=== PATIENT | female | born 1955 | race Caucasian/White ===

== ENCOUNTER → 2018-05-17 | Outpatient (CLI) | payer OTHER ==
[~2018-05-17] MED LIST: DIPH50 PO; HYDACE5 PO; HYDPAM50 PO; NAPR500 PO
[2018-05-17 13:31] LABS: BASOPHILS ABSOLUTE AUTO 0.02 K/mm3 (0.00-0.23); BASOPHILS PERCENT AUTO 1 % (0-2); EOSINOPHILS ABSOLUTE AUTO 0.06 K/mm3 (0.00-0.68); EOSINOPHILS PERCENT AUTO 2 % (0-6); Hematocrit 37.9 % (33.0-51.0); Hemoglobin 12.2 g/dL (11.5-16.0); IMMATURE GRAN ABSOLUTE AUTO 0.01 K/mm3 (0.00-0.10); IMMATURE GRAN PERCENT AUTO 0 % (0-1); LYMPHOCYTES ABSOLUTE AUTO 0.84 K/mm3 (0.84-5.20); LYMPHOCYTES PERCENT AUTO 23 % (21-46); MONOCYTES ABSOLUTE AUTO 0.28 K/mm3 (0.16-1.47); MONOCYTES PERCENT AUTO 8 % (4-13); Mean Corpuscular HGB 28.6 pg (26.0-34.0); Mean Corpuscular HGB Conc 32.2 g/dL (31.5-36.5); Mean Corpuscular Volume 89 fL (80-100); Mean Platelet Volume 11.5 fL (9.1-12.4); NEUTROPHILS ABSOLUTE AUTO 2.38 K/mm3 (1.96-9.15); NEUTROPHILS PERCENT AUTO 66 % (41-73); Platelet Count 62 K/mm3 (150-400); RDW Coefficient Variation 16.1 % (11.7-14.2); RDW Standard Deviation 52.6 fL (35.1-46.3); Red Blood Cell Count 4.26 M/mm3 (3.80-5.20); White Blood Cell Count 3.59 K/mm3 (4.00-11.30)
[2018-05-17 14:02] LABS: Alanine Aminotransfer (ALT/SGP 41 U/L (12-78); Albumin/Globulin Ratio 0.7 (0.8-1.8); Alk Phos 251 U/L (50-136); Anion Gap 6 mmol/L (6-16); Aspartate Aminotrans (AST/SGOT 69 U/L (12-37); Bilirubin, Total 1.1 mg/dL (0.1-1.0); Blood Urea Nitrogen 11 mg/dL (8-24); Bun/Creatinine Ratio 16.2 (12.0-20.0); CO2, Blood 26 mmol/L (21-32); Calcium, Blood 8.6 mg/dL (8.5-10.1); Chloride, Blood 110 mmol/L (98-108); Creatinine, Blood 0.68 mg/dL (0.40-1.00); Globulin, Blood 4.5 g/dL (2.2-4.0); Glomerular Filtration Rate >60 (60-); Glucose, Blood 89 mg/dL (70-99); Potassium, Blood 3.9 mmol/L (3.5-5.5); Sodium, Blood 142 mmol/L (136-145); Total Protein, Blood 7.5 g/dL (6.4-8.2)
== END | disposition home or self-care (01) ==
LOC: LAB 13:20 → LAB SHORT 13:20
DX: R60.9 Edema, unspecified (principal)
CPT/HCPCS: 80053; 85025

== ENCOUNTER 2019-05-17 15:25 | Emergency (ER) | payer OTHER ==
[~2019-05-17] VITALS: Ht 165.1 cm; Wt 104.8 kg
[2019-05-17] MEDS ORDERED: ACETAMINOPHEN500 MG PO (16:44)
== END 2019-05-17 17:11 | disposition home or self-care (01) ==
LOC: ER 15:25
DX: S16.1XXA Strain of muscle, fascia and tendon at neck level, initial encounter (principal); V89.2XXA Person injured in unspecified motor-vehicle accident, traffic, initial encounter
CPT/HCPCS: 72125; 73030; 73562-RT; 96372; 99284-25; J1885

== ENCOUNTER 2019-08-17 17:24 | Emergency (ER) | payer OTHER ==
[~2019-08-17] VITALS: Ht 165.1 cm; Wt 109.3 kg
[~2019-08-17 17:24] MED LIST changes: +ACETAMINOPHEN500 MG PO
== END 2019-08-17 18:02 | disposition home or self-care (01) ==
LOC: ER 17:24
DX: N95.0 Postmenopausal bleeding (principal)
CPT/HCPCS: 99283

== ENCOUNTER → 2019-10-23 | Outpatient (CLI) | payer OTHER | END | disposition home or self-care (01) | LOC: LAB SHORT 08:23 → PLD 08:23 | DX: C54.1 Malignant neoplasm of endometrium (principal) | CPT/HCPCS: 88305; 88342 ==

== ENCOUNTER 2019-11-21 20:17 | Emergency (ER) | payer OTHER ==
[~2019-11-21] VITALS: Ht 167.6 cm; Wt 114.8 kg
[2019-11-21 21:10] LABS: BASOPHILS ABSOLUTE AUTO 0.04 K/mm3 (0.00-0.23); BASOPHILS PERCENT AUTO 1 % (0-2); EOSINOPHILS ABSOLUTE AUTO 0.12 K/mm3 (0.00-0.68); EOSINOPHILS PERCENT AUTO 3 % (0-6); Hematocrit 38.5 % (33.0-51.0); Hemoglobin 12.3 g/dL (11.5-16.0); IMMATURE GRAN ABSOLUTE AUTO 0.01 K/mm3 (0.00-0.10); IMMATURE GRAN PERCENT AUTO 0 % (0-1); LYMPHOCYTES ABSOLUTE AUTO 0.64 K/mm3 (0.84-5.20); LYMPHOCYTES PERCENT AUTO 15 % (21-46); MONOCYTES ABSOLUTE AUTO 0.48 K/mm3 (0.16-1.47); MONOCYTES PERCENT AUTO 12 % (4-13); Mean Corpuscular HGB 28.2 pg (26.0-34.0); Mean Corpuscular HGB Conc 31.9 g/dL (31.5-36.5); Mean Corpuscular Volume 88 fL (80-100); Mean Platelet Volume 10.4 fL (9.1-12.4); NEUTROPHILS ABSOLUTE AUTO 2.87 K/mm3 (1.96-9.15); NEUTROPHILS PERCENT AUTO 69 % (41-73); Platelet Count 65 K/mm3 (150-400); RDW Standard Deviation 55.3 fL (35.1-46.3); Red Blood Cell Count 4.36 M/mm3 (3.80-5.20); White Blood Cell Count 4.16 K/mm3 (4.00-11.30)
[2019-11-21 21:35] LABS: Alanine Aminotransfer (ALT/SGP 53 U/L (12-78); Albumin, Blood 2.9 g/dL (3.4-5.0); Albumin/Globulin Ratio 0.6 (0.8-1.8); Alk Phos 297 U/L (50-136); Anion Gap 5 mmol/L (6-16); Aspartate Aminotrans (AST/SGOT 80 U/L (12-37); Bilirubin, Total 0.8 mg/dL (0.1-1.0); Blood Urea Nitrogen 14 mg/dL (8-24); Bun/Creatinine Ratio 21.5 (12.0-20.0); CO2, Blood 24 mmol/L (21-32); Calcium, Blood 8.8 mg/dL (8.5-10.1); Chloride, Blood 111 mmol/L (98-108); Creatinine, Blood 0.65 mg/dL (0.40-1.00); Globulin, Blood 4.6 g/dL (2.2-4.0); Glomerular Filtration Rate >60 (60-); Glucose, Blood 110 mg/dL (70-99); Potassium, Blood 4.1 mmol/L (3.5-5.5); Sodium, Blood 140 mmol/L (136-145); Total Protein, Blood 7.5 g/dL (6.4-8.2); Troponin I <0.015 ng/mL (0.000-0.040)
== END 2019-11-22 01:56 | disposition home or self-care (01) ==
LOC: ER 20:17
PROVIDERS: Emergency Medicine
DX: E86.0 Dehydration (principal); R55 Syncope and collapse; C53.9 Malignant neoplasm of cervix uteri, unspecified; Z88.5 Allergy status to narcotic agent
CPT/HCPCS: 36415; 71046; 80053; 84484; 85025; 93005; 93010; 96360; 99284-25; J7120

== ENCOUNTER 2019-12-25 06:33 | Day surgery (SDC) | payer OTHER ==
[~2019-12-25] VITALS: Ht 165.1 cm; Wt 117.0 kg
--- NOTE | 2019-12-25 09:10 | NUR ---
PT TO RECOVERY ROOM POST PROCEDURE. PT AWAKE AND CONVERSING APPROPRIATELY, DENIES CHEST PAIN POST PROCEDURE. MONITOR SR 70'S, B/P 128/69,, AFEBRILE, SPO2 94% RA. R RADIAL SITE NO SWELLNG/HEMATOMA, TR BAND IN PLACE 9 CC AIR AT 0856. PT TAKING SIPS OF JUICE WITHOUT ISSUE.
--- NOTE | 2019-12-25 11:55 | NUR ---
PT AMB TO BATHROOM, VOIDED QS; SITE UNCHANGED WITH ACTIVITY. PT DRESSED WITH ASSISTANCE, SITE UNCHANGED. TR BAND REMOVED, CLOTH DOT AND WRIST IMMOBILIZER IN PLACE-PT DECLINED THE NEED FOR A SLING; IV REMOVED-CANNULA INTACT.
--- NOTE | 2019-12-25 12:11 | NUR ---
PT AND GRANDSON RECEIVED DISCHARGE INSTURCTIONS, PROCEDURE CD AND AFTER CARE INSTRUCTIONS (PT NOT ON ANY MEDICATIONS); VERBALIZED GOOD UNDERSTANDING. PT LEFT FACILITY VIA W/C, CONDITION STABLE.
== END 2019-12-25 12:11 | disposition home or self-care (01) ==
LOC: MHTC 06:33
PROC: B2111ZZ Fluoroscopy of Multiple Coronary Arteries using Low Osmolar Contrast (ICD-10-PCS; principal; 2019-12-25)
DX: I35.0 Nonrheumatic aortic (valve) stenosis (principal); I25.10 Atherosclerotic heart disease of native coronary artery without angina pectoris; G89.29 Other chronic pain; M54.9 Dorsalgia, unspecified; F32.9 Major depressive disorder, single episode, unspecified; I10 Essential (primary) hypertension; Z88.5 Allergy status to narcotic agent
CPT/HCPCS: 85347; 93005; 93010; 93454; 99152; 99153; C1769; C1894; J1644; J2250; J3010; J7030; J7050; Q9967

== ENCOUNTER → 2020-01-16 | Outpatient (CLI) | payer OTHER | END | disposition home or self-care (01) | LOC: LAB 15:04 → LAB SHORT 15:04 | DX: S31.819A Unspecified open wound of right buttock, initial encounter (principal); S31.829A Unspecified open wound of left buttock, initial encounter | CPT/HCPCS: 87070; 87077; 87102; 87106; 87147; 87205 ==

== ENCOUNTER 2020-05-12 09:06 | Emergency (ER) | payer OTHER ==
[~2020-05-12] VITALS: Ht 165.1 cm; Wt 103.9 kg
[2020-05-12] MEDS ORDERED: FURO40 PO (09:30)
[2020-05-12] MEDS ORDERED: MAGN84 PO (09:30)
[2020-05-12] MEDS ORDERED: POTA10T PO (09:30)
[2020-05-12 09:58] LABS: BASOPHILS ABSOLUTE AUTO 0.02 K/mm3 (0.00-0.23); BASOPHILS PERCENT AUTO 1 % (0-2); EOSINOPHILS ABSOLUTE AUTO 0.09 K/mm3 (0.00-0.68); EOSINOPHILS PERCENT AUTO 3 % (0-6); Hematocrit 21.7 % (33.0-51.0); Hemoglobin 6.9 g/dL (11.5-16.0); IMMATURE GRAN ABSOLUTE AUTO 0.08 K/mm3 (0.00-0.10); IMMATURE GRAN PERCENT AUTO 3 % (0-1); LYMPHOCYTES PERCENT AUTO 14 % (21-46); MONOCYTES ABSOLUTE AUTO 0.34 K/mm3 (0.16-1.47); MONOCYTES PERCENT AUTO 12 % (4-13); Mean Corpuscular HGB 29.5 pg (26.0-34.0); Mean Corpuscular HGB Conc 31.8 g/dL (31.5-36.5); Mean Corpuscular Volume 93 fL (80-100); Mean Platelet Volume 12.4 fL (9.1-12.4); NEUTROPHILS ABSOLUTE AUTO 1.89 K/mm3 (1.96-9.15); NEUTROPHILS PERCENT AUTO 67 % (41-73); Platelet Count 53 K/mm3 (150-400); RDW Coefficient Variation 16.1 % (11.7-14.2); RDW Standard Deviation 53.1 fL (35.1-46.3); Red Blood Cell Count 2.34 M/mm3 (3.80-5.20); White Blood Cell Count 2.82 K/mm3 (4.00-11.30)
[2020-05-12 10:15] LABS: Alanine Aminotransfer (ALT/SGP 17 U/L (12-78); Albumin, Blood 2.6 g/dL (3.4-5.0); Albumin/Globulin Ratio 0.8 (0.8-1.8); Alk Phos 142 U/L (50-136); Anion Gap 8 mmol/L (6-16); Aspartate Aminotrans (AST/SGOT 38 U/L (12-37); Blood Urea Nitrogen 9 mg/dL (8-24); Bun/Creatinine Ratio 11.1 (12.0-20.0); CO2, Blood 24 mmol/L (21-32); Calcium, Blood 8.2 mg/dL (8.5-10.1); Chloride, Blood 110 mmol/L (98-108); Creatinine, Blood 0.81 mg/dL (0.40-1.00); Globulin, Blood 3.4 g/dL (2.2-4.0); Glomerular Filtration Rate >60 (60-); Glucose, Blood 121 mg/dL (70-99); Potassium, Blood 3.3 mmol/L (3.5-5.5); Sodium, Blood 142 mmol/L (136-145)
== END 2020-05-12 14:41 | disposition home or self-care (01) ==
LOC: ER 09:06
PROVIDERS: Emergency Medicine
DX: D64.9 Anemia, unspecified (principal); D61.818 Other pancytopenia
CPT/HCPCS: 36415; 36430; 80053; 85025; 86850; 86900; 86901; 86923; 99283-25; J7030; P9016

== ENCOUNTER 2020-05-14 13:47 | Emergency (ER) | payer OTHER ==
[~2020-05-14] VITALS: Ht 165.1 cm; Wt 103.9 kg
[~2020-05-14 13:47] MED LIST changes: +FURO40 PO; +MAGN84 PO; +POTA10T PO
[2020-05-14 15:21] LABS: BASOPHILS ABSOLUTE AUTO 0.04 K/mm3 (0.00-0.23); BASOPHILS PERCENT AUTO 1 % (0-2); EOSINOPHILS ABSOLUTE AUTO 0.15 K/mm3 (0.00-0.68); EOSINOPHILS PERCENT AUTO 4 % (0-6); Hematocrit 25.9 % (33.0-51.0); Hemoglobin 8.4 g/dL (11.5-16.0); IMMATURE GRAN ABSOLUTE AUTO 0.05 K/mm3 (0.00-0.10); IMMATURE GRAN PERCENT AUTO 1 % (0-1); LYMPHOCYTES ABSOLUTE AUTO 0.58 K/mm3 (0.84-5.20); LYMPHOCYTES PERCENT AUTO 14 % (21-46); MONOCYTES ABSOLUTE AUTO 0.45 K/mm3 (0.16-1.47); MONOCYTES PERCENT AUTO 11 % (4-13); Mean Corpuscular HGB 29.2 pg (26.0-34.0); Mean Corpuscular HGB Conc 32.4 g/dL (31.5-36.5); Mean Corpuscular Volume 90 fL (80-100); Mean Platelet Volume 10.3 fL (9.1-12.4); NEUTROPHILS ABSOLUTE AUTO 2.98 K/mm3 (1.96-9.15); NEUTROPHILS PERCENT AUTO 70 % (41-73); NRBC ABSOLUTE 0.02 K/mm3 (0.00-0.02); NRBC Auto 0.5 /100 WBC (0.0-0.2); RDW Coefficient Variation 16.7 % (11.7-14.2); RDW Standard Deviation 53.4 fL (35.1-46.3); Red Blood Cell Count 2.88 M/mm3 (3.80-5.20); White Blood Cell Count 4.25 K/mm3 (4.00-11.30)
[2020-05-14 15:39] LABS: Alanine Aminotransfer (ALT/SGP 16 U/L (12-78); Albumin, Blood 2.6 g/dL (3.4-5.0); Albumin/Globulin Ratio 0.8 (0.8-1.8); Alk Phos 137 U/L (50-136); Anion Gap 7 mmol/L (6-16); Aspartate Aminotrans (AST/SGOT 35 U/L (12-37); Bilirubin, Total 1.6 mg/dL (0.1-1.0); Blood Urea Nitrogen 12 mg/dL (8-24); Bun/Creatinine Ratio 14.8 (12.0-20.0); CO2, Blood 24 mmol/L (21-32); Calcium, Blood 8.3 mg/dL (8.5-10.1); Chloride, Blood 108 mmol/L (98-108); Creatinine, Blood 0.81 mg/dL (0.40-1.00); Globulin, Blood 3.4 g/dL (2.2-4.0); Glomerular Filtration Rate >60 (60-); Glucose, Blood 105 mg/dL (70-99); Potassium, Blood 3.7 mmol/L (3.5-5.5); Sodium, Blood 139 mmol/L (136-145); Troponin I <0.015 ng/mL (0.000-0.040)
[2020-05-14 15:41] LABS: Platelet Count 48 K/mm3 (150-400)
== END 2020-05-14 19:40 | disposition home or self-care (01) ==
LOC: ER 13:47
PROVIDERS: Physician Assistant
DX: R31.0 Gross hematuria (principal); D64.9 Anemia, unspecified; Z88.5 Allergy status to narcotic agent; Z79.899 Other long term (current) drug therapy
CPT/HCPCS: 36415; 80053; 84484; 85025; 86850; 86900; 86901; 93005; 93010; 99283-25

== ENCOUNTER 2020-05-17 18:03 | Emergency (ER) | payer OTHER ==
[~2020-05-17] VITALS: Ht 160 cm; Wt 103.9 kg
[2020-05-17 18:49] LABS: BASOPHILS ABSOLUTE AUTO 0.03 K/mm3 (0.00-0.23); BASOPHILS PERCENT AUTO 1 % (0-2); EOSINOPHILS ABSOLUTE AUTO 0.15 K/mm3 (0.00-0.68); EOSINOPHILS PERCENT AUTO 4 % (0-6); Hematocrit 22.3 % (33.0-51.0); Hemoglobin 7.1 g/dL (11.5-16.0); IMMATURE GRAN ABSOLUTE AUTO 0.02 K/mm3 (0.00-0.10); IMMATURE GRAN PERCENT AUTO 1 % (0-1); LYMPHOCYTES PERCENT AUTO 18 % (21-46); MONOCYTES ABSOLUTE AUTO 0.32 K/mm3 (0.16-1.47); MONOCYTES PERCENT AUTO 8 % (4-13); Mean Corpuscular HGB 29.2 pg (26.0-34.0); Mean Corpuscular HGB Conc 31.8 g/dL (31.5-36.5); Mean Corpuscular Volume 92 fL (80-100); NEUTROPHILS ABSOLUTE AUTO 2.67 K/mm3 (1.96-9.15); NEUTROPHILS PERCENT AUTO 69 % (41-73); RDW Standard Deviation 56.9 fL (35.1-46.3); Red Blood Cell Count 2.43 M/mm3 (3.80-5.20); White Blood Cell Count 3.89 K/mm3 (4.00-11.30)
[2020-05-17 18:54] LABS: Mean Platelet Volume 13.2 fL (9.1-12.4)
[2020-05-17 18:55] LABS: Platelet Count 43 K/mm3 (150-400)
[2020-05-17] MEDS ORDERED: POTCHL20ER PO (19:03)
[2020-05-17 19:07] LABS: Alanine Aminotransfer (ALT/SGP 15 U/L (12-78); Albumin, Blood 2.5 g/dL (3.4-5.0); Albumin/Globulin Ratio 0.8 (0.8-1.8); Alk Phos 132 U/L (50-136); Anion Gap 5 mmol/L (6-16); Aspartate Aminotrans (AST/SGOT 33 U/L (12-37); Bilirubin, Total 1.1 mg/dL (0.1-1.0); Blood Urea Nitrogen 15 mg/dL (8-24); Bun/Creatinine Ratio 16.7 (12.0-20.0); CO2, Blood 25 mmol/L (21-32); Calcium, Blood 8.3 mg/dL (8.5-10.1); Chloride, Blood 108 mmol/L (98-108); Globulin, Blood 3.1 g/dL (2.2-4.0); Glomerular Filtration Rate >60 (60-); Glucose, Blood 122 mg/dL (70-99); Potassium, Blood 3.8 mmol/L (3.5-5.5); Sodium, Blood 138 mmol/L (136-145); Total Protein, Blood 5.6 g/dL (6.4-8.2)
== END 2020-05-18 01:00 | disposition home or self-care (01) ==
LOC: ER 18:03
PROVIDERS: Emergency Medicine
DX: D62 Acute posthemorrhagic anemia (principal); Z88.5 Allergy status to narcotic agent; Z79.899 Other long term (current) drug therapy
CPT/HCPCS: 36415; 36430; 80053; 85025; 86850; 86900; 86901; 86923; 93005; 93010; 99285-25; J7030; P9016

== ENCOUNTER 2020-05-26 15:59 | Inpatient (IN) | payer OTHER ==
[~2020-05-26] VITALS: Ht 165.1 cm; Wt 108.3 kg
[~2020-05-26 15:59] MED LIST changes: +FURO20 PO; -FURO40 PO; +POTCHL20ER PO
[2020-05-26 17:00] LABS: BASOPHILS ABSOLUTE AUTO 0.03 K/mm3 (0.00-0.23); BASOPHILS PERCENT AUTO 1 % (0-2); EOSINOPHILS ABSOLUTE AUTO 0.04 K/mm3 (0.00-0.68); EOSINOPHILS PERCENT AUTO 1 % (0-6); Hematocrit 20.5 % (33.0-51.0); Hemoglobin 6.5 g/dL (11.5-16.0); IMMATURE GRAN ABSOLUTE AUTO 0.06 K/mm3 (0.00-0.10); IMMATURE GRAN PERCENT AUTO 1 % (0-1); LYMPHOCYTES ABSOLUTE AUTO 0.66 K/mm3 (0.84-5.20); LYMPHOCYTES PERCENT AUTO 10 % (21-46); MONOCYTES ABSOLUTE AUTO 0.84 K/mm3 (0.16-1.47); MONOCYTES PERCENT AUTO 13 % (4-13); Mean Corpuscular HGB 29.1 pg (26.0-34.0); Mean Corpuscular HGB Conc 31.7 g/dL (31.5-36.5); Mean Corpuscular Volume 92 fL (80-100); NEUTROPHILS ABSOLUTE AUTO 4.85 K/mm3 (1.96-9.15); NEUTROPHILS PERCENT AUTO 75 % (41-73); RDW Coefficient Variation 17.5 % (11.7-14.2); RDW Standard Deviation 58.4 fL (35.1-46.3); Red Blood Cell Count 2.23 M/mm3 (3.80-5.20); White Blood Cell Count 6.48 K/mm3 (4.00-11.30)
[2020-05-26 17:21] LABS: Albumin, Blood 2.2 g/dL (3.4-5.0); Albumin/Globulin Ratio 0.7 (0.8-1.8); Bilirubin, Total 1.7 mg/dL (0.1-1.0); Bun/Creatinine Ratio 18.1 (12.0-20.0); Calcium, Blood 7.8 mg/dL (8.5-10.1); Creatinine, Blood 1.05 mg/dL (0.40-1.00); Globulin, Blood 3.1 g/dL (2.2-4.0); Total Protein, Blood 5.3 g/dL (6.4-8.2)
[2020-05-26 17:24] LABS: Platelet Count 32 K/mm3 (150-400)
[2020-05-26 17:36] LABS: Troponin I 3.49 ng/mL (0.000-0.040)
[2020-05-26 17:55] LABS: Source, Urine Clean Catch
[2020-05-26] MEDS ORDERED: MGO PO (18:00)
[2020-05-26 18:12] LABS: Appearance, Urine Clear (Clear); Blood, Urine 4+ (Neg); Color, Urine Amber (P-Yellow); Glucose Qualitative, Urine Neg (Neg); Ketones, Urine Neg (Neg); Leukocyte Esterase, Urine 2+ (Neg); Nitrite, Urine Neg (Neg); Protein, Urine 2+ (Neg); Urobilinogen, Urine 1+ (Normal)
[2020-05-26 19:29] LABS: Bilirubin, Urine 1+ (Neg)
[2020-05-26 19:32] LABS: Bacteria Many /hpf; Red Blood Cells, Urine 0-2 /hpf (0-2); Squamous Epithelial Cells Mod /hpf (Few)
[2020-05-26] MEDS ORDERED: Acetaminophen325 M1 PO (21:18)
[2020-05-27 01:08] LABS: BASOPHILS ABSOLUTE AUTO 0.02 K/mm3 (0.00-0.23); BASOPHILS PERCENT AUTO 0 % (0-2); EOSINOPHILS ABSOLUTE AUTO 0.06 K/mm3 (0.00-0.68); EOSINOPHILS PERCENT AUTO 1 % (0-6); Hematocrit 21.4 % (33.0-51.0); Hemoglobin 6.9 g/dL (11.5-16.0); IMMATURE GRAN ABSOLUTE AUTO 0.03 K/mm3 (0.00-0.10); IMMATURE GRAN PERCENT AUTO 1 % (0-1); LYMPHOCYTES ABSOLUTE AUTO 0.43 K/mm3 (0.84-5.20); LYMPHOCYTES PERCENT AUTO 9 % (21-46); MONOCYTES ABSOLUTE AUTO 0.58 K/mm3 (0.16-1.47); MONOCYTES PERCENT AUTO 12 % (4-13); Mean Corpuscular HGB Conc 32.2 g/dL (31.5-36.5); Mean Corpuscular Volume 90 fL (80-100); Mean Platelet Volume 9.6 fL (9.1-12.4); NEUTROPHILS PERCENT AUTO 77 % (41-73); RDW Coefficient Variation 17.5 % (11.7-14.2); RDW Standard Deviation 56.6 fL (35.1-46.3); Red Blood Cell Count 2.38 M/mm3 (3.80-5.20); White Blood Cell Count 4.82 K/mm3 (4.00-11.30)
[2020-05-27 01:12] LABS: Platelet Count 25 K/mm3 (150-400)
[2020-05-27 01:24] LABS: Alanine Aminotransfer (ALT/SGP 14 U/L (12-78); Albumin/Globulin Ratio 0.7 (0.8-1.8); Alk Phos 118 U/L (50-136); Anion Gap 5 mmol/L (6-16); Aspartate Aminotrans (AST/SGOT 40 U/L (12-37); Blood Urea Nitrogen 21 mg/dL (8-24); Bun/Creatinine Ratio 21.8 (12.0-20.0); CO2, Blood 28 mmol/L (21-32); Calcium, Blood 7.4 mg/dL (8.5-10.1); Chloride, Blood 106 mmol/L (98-108); Creatinine, Blood 0.96 mg/dL (0.40-1.00); Globulin, Blood 2.9 g/dL (2.2-4.0); Glomerular Filtration Rate >60 (60-); Glucose, Blood 105 mg/dL (70-99); Potassium, Blood 3.7 mmol/L (3.5-5.5); Sodium, Blood 139 mmol/L (136-145); Total Protein, Blood 4.9 g/dL (6.4-8.2)
[2020-05-27 01:42] LABS: Troponin I 2.94 ng/mL (0.000-0.040)
--- NOTE | 2020-05-27 03:30 | NUR ---
ASSUMED CARE RECEIVED REPORT FROM GRABIEL JIMENEZ. PT RESTING, PRBCS ONGOING. VSS. NO ACUTE NEEDS ASSESSED AT THIS TIME. CALL LIGHT, POSSESSIONS IN REACH.
--- NOTE | 2020-05-27 03:34 | NUR ---
TRANSFER OF CARE TO MADALYN MONIQUE @ 3015 PT AXO. ON RA. IN SR. RECEIVED 1UPRBCAND THEN LOST IV ACCESS, CARLTON CUELLAR PLACED POWERGLIDE AND 2U BEGAN INFUSING, CURRENTLY ON FIRST HOUR OF INFUSION. PT TOLERATING BLOOD WELL. UPON ADMIT, RED VOID, NEXT 3 VOIDS LIGHT YELLOW. PT TO HAVE ECHO IN AM. TROP TRENDING DOWNWARD, PT HAS DENIED CP THIS SHIFT.
--- NOTE | 2020-05-27 07:27 | NUR ---
PROPERTY ADJUSTER SUMMARY PT ASLEEP, IN NO ACUTE DISTRESS. VS REVIEWED,WNL. S/P 2 UNITS PRBCS, TOLERATED WELL. NO ACUTE CHANGES NOTED FROM INITIAL ASSESSMENT. PT DENIES PAIN. CALL LIGHT, POSSESSIONS IN REACH, BED IN LOW POSITION. REPORT GIVEN TO ONCOMING RN.
--- NOTE | 2020-05-27 07:35 | NUR ---
Pt is resting in bed. She awakens easily and reports that she is tired from being up all night. she denies any weakness/dizziness. She does appear to be pale but is warm to the touch. She denies sto,ach pain/nausea. IV fluids are infusing as ordered. She is her call light in reach.
[2020-05-27 09:50] LABS: CPK Creatine Kinase 66 U/L (26-193)
[2020-05-27 13:37] LABS: Hematocrit 23.2 % (33.0-51.0); Hemoglobin 7.8 g/dL (11.5-16.0)
--- NOTE | 2020-05-27 15:02 | NUR ---
This nurse spoke with Dr Reyes about the pt status and he ordered 1 unit of RBCs with a follow up H/H 4 hours after infusion. He also ordered her a diet. There is also a new order for a stool sample and that is pending her next BM. Pt is a/o x 4 and denies pain. she is resting in bed and has her call light in reach.
--- NOTE | 2020-05-27 15:09 | NUR ---
Echocardiogram performed by Candie Flores under my supervision/
--- NOTE | 2020-05-27 16:48 | NUR ---
shift summary Pt has been a/o x 4 today but she does have a childlike demeanor. She denies any pain or discomfort. computer repair technician reports sinus @ 70. VSS. Follow up H/H was done per Dr Reyes and with those results he ordered another unit of RBCs and an H/H 4 hours post infusion. Lungs sounds at the start of this shift were crackles in the bases and that has continued throughout the day. Her unit of blood continues to infuse now. Her echo was completed as ordered and the results are pending. Her NPO status was DCd and Dr Reyes ordered a diet for her. She has been a x 1 assist to the BSC for toileting. She calls appropriately for the most part and has been cooperative with her care. She has her call light in reach.
[2020-05-27 18:04] LABS: CHOL/HDL RATIO 3.4; Cholesterol 114 mg/dL (50-200); HDL Cholesterol 34 mg/dL (>39); LDL/HDL RATIO 1.8; Low Density Lipoprotein Chol 60 mg/dL (0-110); Triglycerides 99 mg/dL (30-160); Very Low Density Lipoprot Chol 19 mg/dL (6-32)
[2020-05-27 21:23] LABS: Stool Occult Blood Guaiac 1 Pos (Neg)
[2020-05-27 22:23] LABS: Hematocrit 25.8 % (33.0-51.0); Hemoglobin 8.7 g/dL (11.5-16.0)
[2020-05-28 04:42] LABS: Hematocrit 25.8 % (33.0-51.0); Hemoglobin 8.5 g/dL (11.5-16.0); Mean Corpuscular HGB 28.6 pg (26.0-34.0); Mean Corpuscular HGB Conc 32.9 g/dL (31.5-36.5); Mean Corpuscular Volume 87 fL (80-100); RDW Coefficient Variation 16.6 % (11.7-14.2); RDW Standard Deviation 51.4 fL (35.1-46.3); RETICULOCYTE ABSOLUTE 0.0944 M/mm3 (0.0200-0.1100); RETICULOCYTE COUNT PERCENT 3.18 % (0.50-2.50); Red Blood Cell Count 2.97 M/mm3 (3.80-5.20); White Blood Cell Count 3.88 K/mm3 (4.00-11.30)
[2020-05-28 04:47] LABS: Platelet Count 27 K/mm3 (150-400)
[2020-05-28 05:24] LABS: Alanine Aminotransfer (ALT/SGP 14 U/L (12-78); Albumin, Blood 1.9 g/dL (3.4-5.0); Albumin/Globulin Ratio 0.6 (0.8-1.8); Alk Phos 109 U/L (50-136); Anion Gap 7 mmol/L (6-16); Aspartate Aminotrans (AST/SGOT 31 U/L (12-37); Bilirubin, Total 1.5 mg/dL (0.1-1.0); Blood Urea Nitrogen 22 mg/dL (8-24); Bun/Creatinine Ratio 23.7 (12.0-20.0); CO2, Blood 27 mmol/L (21-32); Calcium, Blood 7.4 mg/dL (8.5-10.1); Chloride, Blood 107 mmol/L (98-108); Creatinine, Blood 0.93 mg/dL (0.40-1.00); Free Thyroxine 1.16 ng/dL (0.70-1.60); Glomerular Filtration Rate >60 (60-); Glucose, Blood 97 mg/dL (70-99); Potassium, Blood 3.4 mmol/L (3.5-5.5); Sodium, Blood 141 mmol/L (136-145); Total Protein, Blood 4.9 g/dL (6.4-8.2)
[2020-05-28 06:04] LABS: BAND PERCENT MAN 2 % (0-8); BASOPHILS PERCENT MAN 0 % (0-2); EOSINOPHILS ABSOLUTE MAN 0.07 K/mm3 (0.00-0.68); EOSINOPHILS PERCENT MAN 2 % (0-6); LYMPHOCYTES ABSOLUTE MAN 0.38 K/mm3 (0.84-5.20); LYMPHOCYTES PERCENT MAN 10 % (21-46); MONOCYTES ABSOLUTE MAN 0.19 K/mm3 (0.16-1.47); MONOCYTES PERCENT MAN 5 % (4-13); MYELOCYTE ABSOLUTE MAN 0.03 K/mm3 (0.00-0.00); MYELOCYTE PERCENT MAN 1 % (0-0); NEUTROPHILS ABSOLUTE MAN 3.18 K/mm3 (1.96-9.15); SEG NEUTROPHILS PERCENT MAN 80 % (41-73); TOTAL CELLS COUNTED 100
--- NOTE | 2020-05-28 06:30 | NUR ---
SHIFT SUMMARY PT WAS ALERT AND ORIENTED AND COOPERATIVE WITH CARE. PT WAS CONFUSED AT TIMES STATING I DID NOT GIVE HER MEDICATION SHORTLY AFTER I HAD GIVEN HER HER MEDICATION. PT DENIED ANY CHEST PAIN. VITALS WERE STABLE, BP 110-113 SYATOLIC. HR 80'S. O2 SATS >90% ON ROOM AIR. HGB HAD LITTLE CHANGE T/O THE NIGHT 8.7-8.5. PLATELET COUNT WAS LOW THIS AM BUT TRENDING UP. PT STATED HAVING SOME PAIN IN HER RIGHT SIDE JUST BELOW THE NIPPLE BUT DENIED PAIN MEDICATIONS STATING THAT HER DR TOLD HER NOT TO TAKE ANY ASPIRIN. PT OTHERWISE HAD AN UNEVENTFUL NIGHT.
--- NOTE | 2020-05-28 08:47 | NUR ---
Pt is a/o x 4 this morning and seems to be improving. she is sitting up in the chair and has been a stand by assist to transfer. She continues with her child like vik but is oriented at baseline. She denies any pain or discomfort. She had a BM that was brown/red in color and malodorous and Dr Reyes is aware. She had a good appetite for breakfast and uses her call light when needed.
[2020-05-28 11:12] LABS: Hemoglobin 9.1 g/dL (11.5-16.0)
--- NOTE | 2020-05-28 16:18 | NUR ---
shift summary pt has been a/o x 4 today with her ongoing "baby talk" and child like behavior. She has been emotioanlly labile and tearful at times saying that she feels she is "not going to get better". Multiple efforts have been made to redirect and comfort her but she declines any effor and only wants her grandson. She reports that he will be coming to visit this afternoon. She continues to have red/brown BMs but denies any stomach pain or nausea. Dr Reyes saw her this morning and ordered platelets which were infused after multiple attempts to start a new IV line after her powerglide stopped flushing. She became more emotional after the efforts to re-establish a new IV stating that she is "just a pin cushion". My HEEL VARNISHER offered a staff member to come and sit and talk with the pt but she declined any vistors from spiritual care. Her tele was DCD and she was status changed to medical and this was communicated to the pt and that as soon as a bed becomes available she will be moved to the medical floor and she was in agreement with this. Pt has been a stand by assist to the bedside commode for toileting and calls frequently to void. Her H/H has been WNL today and her VSS. She calls appropriately. She is watching TV and has her call light in reach.
[2020-05-28 17:42] LABS: Hemoglobin 8.8 g/dL (11.5-16.0)
--- NOTE | 2020-05-28 17:52 | NUR ---
pt being transferred to room 338. Pt was notified. Report was called to receiving RN. All personal belongings packed. Her grandson is at the bedside and pt is eating her dinner. We will assist her upstairs after she eats.
--- NOTE | 2020-05-28 18:34 | NUR ---
PT BROUGHT TO ROOM 338 VIA BED FROM PCU. ORIENTED TO ROOM AND CALL BUTTON PLACED WITHIN REACH. WILL REPORT CONDITION TO ONCOMING SHIFT.
--- NOTE | 2020-05-28 20:06 | NUR ---
ASSUMPTION OF CARE. AOX3, VERY ANGRY, UPSET, TEARFUL DUE TO RECENT DX. STATES SHE HAS RADIATION POISENING. ANGRY THAT SHE WENT THROUGH A YEAR OF RADIATION TO ONLY FIND OUT SHE HAS NO BONE MARROW AND IS IN WORSE CONDITION. HAD UNREALISTIC HOPE OF FULL RECOVERY FROM CANCER AND IS UPSET WITH RESULTS. SHE IS VERY ANGRY WITH ALL MEDICAL PEOPLE AT THIS POINT, BLAMES DOCTORS FOR CAUSING HER CONDITION. PROVIDED LISTENING AND COMFORT. UP TO BSC AT THIS TIME. CALL LIGHT IS IN REACH.
--- NOTE | 2020-05-29 01:43 | NUR ---
AZEEM IS AWAKE AND VERY EMOTIONAL STILL. SHE REFUSED CPAP AND LAB DRAWS. STATES SHE IS DONE, ALL SHE WANTS TO DO IS GO HOME TODAY. WILL CONTINUE TO MONITOR.
--- NOTE | 2020-05-29 05:17 | NUR ---
PT REFUSED VITALS, NURSE NOTIFIED
--- NOTE | 2020-05-29 05:48 | NUR ---
SHIFT SUMMARY; AOX3, VERY EMOTIONAL, ANGRY WITH MEDICAL STAFF AND THE WORLD. BLAMES DOCTORS AND STAFF FOR WHAT SHE STATES "RADIATION POISENING". STATES SHE WENT THROUGH RADIATION FOR A YEAR TO BE TOLD "I HAVE NO BONE MARROW, THE RADIATION KILLED IT ALL". STATES SHE MIGHT WELL GIVE UP. REFUSES SOME CARE. SUCH MORNING LABS, CPAP, AND VITALS. SHE HAS PERFERRED TO LEFT ALONE. LISA AT TIMES. STOOL REDISH BROWN IN COLOR. SKIN PALE. FIRST SET OF VITALS WERE GOOD. SPIRTUAL CARE ORDERED TO SEE IF IT WILL HELP WITH HER EMOTIONAL STATE. SLEPT OFF AND ON THROUGHOUT THE NIGHT. WILL REPORT TO DAY SHIFT. CALL LIGHT IN REACH.
[2020-05-29 09:59] LABS: BASOPHILS ABSOLUTE AUTO 0.01 K/mm3 (0.00-0.23); BASOPHILS PERCENT AUTO 0 % (0-2); EOSINOPHILS ABSOLUTE AUTO 0.14 K/mm3 (0.00-0.68); EOSINOPHILS PERCENT AUTO 4 % (0-6); Hematocrit 28.8 % (33.0-51.0); Hemoglobin 9.2 g/dL (11.5-16.0); Hemoglobin 9.4 g/dL (11.5-16.0); IMMATURE GRAN ABSOLUTE AUTO 0.02 K/mm3 (0.00-0.10); IMMATURE GRAN PERCENT AUTO 1 % (0-1); LYMPHOCYTES ABSOLUTE AUTO 0.26 K/mm3 (0.84-5.20); LYMPHOCYTES PERCENT AUTO 7 % (21-46); MONOCYTES ABSOLUTE AUTO 0.43 K/mm3 (0.16-1.47); MONOCYTES PERCENT AUTO 11 % (4-13); Mean Corpuscular HGB 28.8 pg (26.0-34.0); Mean Corpuscular HGB Conc 31.9 g/dL (31.5-36.5); Mean Corpuscular Volume 90 fL (80-100); Mean Platelet Volume 11.1 fL (9.1-12.4); NEUTROPHILS ABSOLUTE AUTO 3.15 K/mm3 (1.96-9.15); NEUTROPHILS PERCENT AUTO 79 % (41-73); Platelet Count 51 K/mm3 (150-400); RDW Coefficient Variation 16.5 % (11.7-14.2); RDW Standard Deviation 53.5 fL (35.1-46.3); Red Blood Cell Count 3.19 M/mm3 (3.80-5.20); White Blood Cell Count 4.01 K/mm3 (4.00-11.30)
[2020-05-29 10:10] LABS: Anion Gap 5 mmol/L (6-16); Blood Urea Nitrogen 20 mg/dL (8-24); Bun/Creatinine Ratio 22.1 (12.0-20.0); CO2, Blood 29 mmol/L (21-32); Calcium, Blood 7.8 mg/dL (8.5-10.1); Chloride, Blood 105 mmol/L (98-108); Glomerular Filtration Rate >60 (60-); Glucose, Blood 126 mg/dL (70-99); Potassium, Blood 3.6 mmol/L (3.5-5.5); Sodium, Blood 139 mmol/L (136-145)
[2020-05-29 10:13] LABS: Bilirubin, Direct 0.6 mg/dL (0.0-0.3); Bilirubin, Total 1.6 mg/dL (0.1-1.0)
--- NOTE | 2020-05-29 11:57 | NUR ---
Upon receiving a referral for spiritual care, I visit patient. Patient is angry and answers in one word sentences, but as the conversation progresses she tells me about her frustrations with the medical system, her deep fears of living as "jelly" having no strength and unable to do anything or go anywhere. Patient gets tearful at times. She talks about and dying. Patient expresses her love for her grandsons and that they are the reason that she is still fighting for her life. Patient admits to having some strength left to get well but she has little meghan in any doctor to be able to help her. I reinforce helpful attitudes, and provide therapeutic listening, anxiety containment, and a calming presence. Patient responds well and shows signs of an elevated mood. I will continue to remain available to patient and family.
--- NOTE | 2020-05-29 19:08 | NUR ---
much improved attitude from am to pm when family visited, still not pleased with care but willing to work with staff towards best possible care, no o2, iv saline locked, call light in reach, able to make needs known, bsr shared with noc nurse and pt
--- NOTE | 2020-05-29 21:15 | NUR ---
ASSUMPTION OF CARE. AOX3, IN A BETTER MOOD TODAY, BUT TENDS TO HAVE CHILDLIKE BEHAVIOR AT TIMES. DENIES ANY PAIN OR DISCOMFORT. LS DIMINISHED BUT CLEAR. OCCATIONAL DRY COUGH. SWELLING IN LEFT ARM. BRUISES ON THE RIGHT ARM. STOOLS ARE MORE OF A BROWN COLOR THEN A RED COLOR. NO DIZZINESS OR LIGHTHEADNESS. DENIES ANY NEEDS. CALL LIGHT IS IN REACH.
--- NOTE | 2020-05-30 06:09 | NUR ---
SHIFT SUMMARY: AOX3, 1 ASSIST TO THE BSC. IN BETTER MOOD THIS SHIFT, CALM WITH OCCATIONAL CHILDLIKE BEHAVIOR EPISODES. FOLLOWS DIRECTION AND IS ALLOWING CARE. DECREASE IN BLOOD IN STOOL, URINE IS YELLOW. NO DIZZINESS OR OTHER SIGNS OF ANEMIA. BRUISING TO RIGHT ARM HEALING. NO PAIN. LYMPHAEDMA IN LUE. SLEPT WELL T/O NIGHT. VS WNL, AFEBRILE. CALL LIGHT IN REACH.
[2020-05-30 09:18] LABS: Hemoglobin 8.7 g/dL (11.5-16.0)
[2020-05-30] MEDS ORDERED: ATOR10 PO (16:27)
[2020-05-30] MEDS ORDERED: PANT40 PO (16:28)
[2020-05-30] MEDS ORDERED: FOLI1 PO (16:28)
--- NOTE | 2020-05-30 18:18 | NUR ---
DISCHARGED:left with family, stephen rubio pushed by staff to family car, REVIEWED discharge instructions and medications, as well as follow up appointments and life changes, REMOVED and charted IV
== END 2020-05-30 17:07 | disposition home health service (06) | DRG 808 ==
LOC: ER 15:59 → MEDS 20:56 → PCU 20:56 → MEDS 05-28 18:23
PROVIDERS: Internal Medicine; Internal Medicine Cardiovascular Disease; Physician Assistant; ADMIT Internal Medicine
PROC: 30233R1 Transfusion of Nonautologous Platelets into Peripheral Vein, Percutaneous Approach (ICD-10-PCS; principal; 2020-05-27)
PROC: 30233N1 Transfusion of Nonautologous Red Blood Cells into Peripheral Vein, Percutaneous Approach (ICD-10-PCS; 2020-05-28)
DX: D61.818 Other pancytopenia (principal); I21.A1 Myocardial infarction type 2; K92.2 Gastrointestinal hemorrhage, unspecified; D50.0 Iron deficiency anemia secondary to blood loss (chronic); R31.9 Hematuria, unspecified; I50.9 Heart failure, unspecified; I25.10 Atherosclerotic heart disease of native coronary artery without angina pectoris; D69.6 Thrombocytopenia, unspecified; E66.9 Obesity, unspecified; F10.11 Alcohol abuse, in remission; K74.60 Unspecified cirrhosis of liver; R16.1 Splenomegaly, not elsewhere classified; Z79.899 Other long term (current) drug therapy; Z88.5 Allergy status to narcotic agent; Z68.38 Body mass index [BMI] 38.0-38.9, adult; Z85.41 Personal history of malignant neoplasm of cervix uteri; Z86.718 Personal history of other venous thrombosis and embolism; Z95.2 Presence of prosthetic heart valve
CPT/HCPCS: 36415; 36430; 71045; 80048; 80053; 80061; 81001; 82247; 82248; 82272; 82550; 82607; 82746; 83010; 83615; 83880; 84439; 84443; 84484; 85014; 85018; 85025; 85045; 86850; 86900; 86901; 86923; 87077; 87086; 87186; 93005; 93010; 93306; 96374; 97116; 97161; 99285-25; A9270; A9270-GY; C1751; J1940; J7030; J7050; P9016; P9035; P9612

== ENCOUNTER 2020-07-08 13:26 | Emergency (ER) | payer OTHER ==
[~2020-07-08] VITALS: Ht 165.1 cm; Wt 108.4 kg
[~2020-07-08 13:26] MED LIST changes: +ATOR10 PO; +Acetaminophen325 M1 PO; +FOLI1 PO; -FURO20 PO; +FURO40 PO; +MGO PO; +PANT40 PO
[2020-07-08 14:43] LABS: Alanine Aminotransfer (ALT/SGP 20 U/L (12-78); Albumin/Globulin Ratio 0.4 (0.8-1.8); Alk Phos 235 U/L (50-136); Anion Gap 8 mmol/L (6-16); Aspartate Aminotrans (AST/SGOT 58 U/L (12-37); Blood Urea Nitrogen 13 mg/dL (8-24); Bun/Creatinine Ratio 14.6 (12.0-20.0); CO2, Blood 27 mmol/L (21-32); Calcium, Blood 7.6 mg/dL (8.5-10.1); Chloride, Blood 97 mmol/L (98-108); Creatinine, Blood 0.89 mg/dL (0.40-1.00); Globulin, Blood 4.5 g/dL (2.2-4.0); Glomerular Filtration Rate >60 (60-); Glucose, Blood 108 mg/dL (70-99); Potassium, Blood 3.1 mmol/L (3.5-5.5); Sodium, Blood 132 mmol/L (136-145); Total Protein, Blood 6.5 g/dL (6.4-8.2); Troponin I <0.015 ng/mL (0.000-0.040)
[2020-07-08 17:14] LABS: BASOPHILS ABSOLUTE AUTO 0.05 K/mm3 (0.00-0.23); BASOPHILS PERCENT AUTO 1 % (0-2); EOSINOPHILS ABSOLUTE AUTO 0.22 K/mm3 (0.00-0.68); EOSINOPHILS PERCENT AUTO 6 % (0-6); Hematocrit 29.2 % (33.0-51.0); Hemoglobin 9.2 g/dL (11.5-16.0); IMMATURE GRAN ABSOLUTE AUTO 0.06 K/mm3 (0.00-0.10); IMMATURE GRAN PERCENT AUTO 2 % (0-1); LYMPHOCYTES ABSOLUTE AUTO 0.47 K/mm3 (0.84-5.20); LYMPHOCYTES PERCENT AUTO 12 % (21-46); MONOCYTES ABSOLUTE AUTO 0.49 K/mm3 (0.16-1.47); MONOCYTES PERCENT AUTO 13 % (4-13); Mean Corpuscular HGB 27.2 pg (26.0-34.0); Mean Corpuscular HGB Conc 31.5 g/dL (31.5-36.5); Mean Corpuscular Volume 86 fL (80-100); NEUTROPHILS ABSOLUTE AUTO 2.62 K/mm3 (1.96-9.15); NEUTROPHILS PERCENT AUTO 67 % (41-73); RDW Coefficient Variation 19.2 % (11.7-14.2); RDW Standard Deviation 60.2 fL (35.1-46.3); Red Blood Cell Count 3.38 M/mm3 (3.80-5.20); White Blood Cell Count 3.91 K/mm3 (4.00-11.30)
[2020-07-08 17:19] LABS: Platelet Count 14 K/mm3 (150-400)
[2020-07-08 17:33] LABS: BASOPHILS PERCENT MAN 0 % (0-2); EOSINOPHILS ABSOLUTE MAN 0.07 K/mm3 (0.00-0.68); EOSINOPHILS PERCENT MAN 2 % (0-6); LYMPHOCYTES ABSOLUTE MAN 0.58 K/mm3 (0.84-5.20); LYMPHOCYTES PERCENT MAN 15 % (21-46); MONOCYTES ABSOLUTE MAN 0.39 K/mm3 (0.16-1.47); MONOCYTES PERCENT MAN 10 % (4-13); NEUTROPHILS ABSOLUTE MAN 2.85 K/mm3 (1.96-9.15); SEG NEUTROPHILS PERCENT MAN 73 % (41-73); TOTAL CELLS COUNTED 100
[2020-07-08 22:03] LABS: Magnesium, Blood 1.6 mg/dL (1.6-2.4); Potassium, Blood 3.7 mmol/L (3.5-5.5)
== END 2020-07-08 23:35 | disposition home or self-care (01) ==
LOC: ER 13:26
PROVIDERS: Emergency Medicine; Physician Assistant
DX: R07.9 Chest pain, unspecified (principal); E87.6 Hypokalemia; E83.42 Hypomagnesemia; D69.6 Thrombocytopenia, unspecified; Z88.5 Allergy status to narcotic agent; Z79.899 Other long term (current) drug therapy
CPT/HCPCS: 36415; 71046; 80053; 83690; 83735; 84132; 84484; 85025; 93005; 93010; 99285-25; A9270

== ENCOUNTER 2020-08-05 14:53 | Emergency (ER) | payer OTHER ==
[~2020-08-05] VITALS: Ht 162.6 cm; Wt 103.4 kg
[2020-08-05 15:59] LABS: BASOPHILS ABSOLUTE AUTO 0.03 K/mm3 (0.00-0.23); BASOPHILS PERCENT AUTO 1 % (0-2); EOSINOPHILS PERCENT AUTO 2 % (0-6); Hematocrit 27.4 % (33.0-51.0); Hemoglobin 8.8 g/dL (11.5-16.0); IMMATURE GRAN ABSOLUTE AUTO 0.18 K/mm3 (0.00-0.10); IMMATURE GRAN PERCENT AUTO 3 % (0-1); LYMPHOCYTES ABSOLUTE AUTO 0.36 K/mm3 (0.84-5.20); LYMPHOCYTES PERCENT AUTO 7 % (21-46); MONOCYTES ABSOLUTE AUTO 0.61 K/mm3 (0.16-1.47); MONOCYTES PERCENT AUTO 12 % (4-13); Mean Corpuscular HGB 28.5 pg (26.0-34.0); Mean Corpuscular HGB Conc 32.1 g/dL (31.5-36.5); Mean Corpuscular Volume 89 fL (80-100); NEUTROPHILS ABSOLUTE AUTO 3.95 K/mm3 (1.96-9.15); NEUTROPHILS PERCENT AUTO 76 % (41-73); Platelet Count 53 K/mm3 (150-400); RDW Coefficient Variation 23.9 % (11.7-14.2); RDW Standard Deviation 75.6 fL (35.1-46.3); Red Blood Cell Count 3.09 M/mm3 (3.80-5.20); White Blood Cell Count 5.23 K/mm3 (4.00-11.30)
[2020-08-05 16:20] LABS: Alanine Aminotransfer (ALT/SGP 20 U/L (12-78); Albumin/Globulin Ratio 0.4 (0.8-1.8); Alk Phos 228 U/L (50-136); Anion Gap 8 mmol/L (6-16); Aspartate Aminotrans (AST/SGOT 64 U/L (12-37); Bilirubin, Total 4.4 mg/dL (0.1-1.0); Blood Urea Nitrogen 14 mg/dL (8-24); Bun/Creatinine Ratio 17.5 (12.0-20.0); CO2, Blood 28 mmol/L (21-32); Calcium, Blood 8.1 mg/dL (8.5-10.1); Chloride, Blood 98 mmol/L (98-108); Globulin, Blood 4.7 g/dL (2.2-4.0); Glomerular Filtration Rate >60 (60-); Glucose, Blood 105 mg/dL (70-99); Magnesium, Blood 1.6 mg/dL (1.6-2.4); Potassium, Blood 3.1 mmol/L (3.5-5.5); Sodium, Blood 134 mmol/L (136-145); Total Protein, Blood 6.7 g/dL (6.4-8.2)
== END 2020-08-05 19:45 | disposition home or self-care (01) ==
LOC: ER 14:53
PROVIDERS: Physician Assistant
DX: R20.2 Paresthesia of skin (principal); E66.01 Morbid (severe) obesity due to excess calories; R53.1 Weakness; Z88.5 Allergy status to narcotic agent; Z79.899 Other long term (current) drug therapy
CPT/HCPCS: 36415; 72148; 80053; 83735; 85025; 93005; 93010; 99284-25; A9270

== ENCOUNTER 2020-08-17 15:46 | Emergency (ER) | payer OTHER ==
[~2020-08-17] VITALS: Ht 165.1 cm; Wt 103.0 kg
[2020-08-17 16:53] LABS: Hematocrit 26.1 % (33.0-51.0); Hemoglobin 8.6 g/dL (11.5-16.0); Mean Corpuscular Volume 85 fL (80-100); NRBC Auto 1.9 /100 WBC (0.0-0.2); Platelet Count 73 K/mm3 (150-400); RDW Coefficient Variation 22.8 % (11.7-14.2); Red Blood Cell Count 3.07 M/mm3 (3.80-5.20); White Blood Cell Count 5.13 K/mm3 (4.00-11.30)
[2020-08-17 17:07] LABS: Alanine Aminotransfer (ALT/SGP 26 U/L (12-78); Albumin, Blood 2.3 g/dL (3.4-5.0); Albumin/Globulin Ratio 0.4 (0.8-1.8); Alk Phos 313 U/L (50-136); Anion Gap 10 mmol/L (6-16); Aspartate Aminotrans (AST/SGOT 116 U/L (12-37); Bilirubin, Total 6.9 mg/dL (0.1-1.0); Blood Urea Nitrogen 21 mg/dL (8-24); Bun/Creatinine Ratio 24.7 (12.0-20.0); CO2, Blood 25 mmol/L (21-32); Calcium, Blood 8.6 mg/dL (8.5-10.1); Chloride, Blood 94 mmol/L (98-108); Creatinine, Blood 0.85 mg/dL (0.40-1.00); Globulin, Blood 5.2 g/dL (2.2-4.0); Glomerular Filtration Rate >60 (60-); Glucose, Blood 104 mg/dL (70-99); Potassium, Blood 3.5 mmol/L (3.5-5.5); Sodium, Blood 129 mmol/L (136-145); Total Protein, Blood 7.5 g/dL (6.4-8.2)
[2020-08-17 17:11] LABS: BAND PERCENT MAN 3 % (0-8); BASOPHILS PERCENT MAN 0 % (0-2); EOSINOPHILS PERCENT MAN 0 % (0-6); LYMPHOCYTES PERCENT MAN 2 % (21-46); METAMYELOCYTE ABSOLUTE MAN 0.15 K/mm3 (0.00-0.00); METAMYELOCYTE PERCENT MAN 3 % (0-0); MONOCYTES ABSOLUTE MAN 0.05 K/mm3 (0.16-1.47); MONOCYTES PERCENT MAN 1 % (4-13); MYELOCYTE ABSOLUTE MAN 0.15 K/mm3 (0.00-0.00); MYELOCYTE PERCENT MAN 3 % (0-0); NEUTROPHILS ABSOLUTE MAN 4.66 K/mm3 (1.96-9.15); SEG NEUTROPHILS PERCENT MAN 88 % (41-73); TOTAL CELLS COUNTED 100
== END 2020-08-17 22:13 | disposition home or self-care (01) ==
LOC: ER 15:46
PROVIDERS: Physician Assistant
DX: R53.1 Weakness (principal); Z79.899 Other long term (current) drug therapy
CPT/HCPCS: 36415; 70450; 80053; 85025; 93971; 99284-25

== ENCOUNTER 2020-08-22 13:55 | Inpatient (IN) | payer OTHER ==
[~2020-08-22] VITALS: Ht 165.1 cm; Wt 111.7 kg
[2020-08-22 15:33] LABS: BASOPHILS ABSOLUTE AUTO 0.02 K/mm3 (0.00-0.23); BASOPHILS PERCENT AUTO 0 % (0-2); EOSINOPHILS ABSOLUTE AUTO 0.05 K/mm3 (0.00-0.68); EOSINOPHILS PERCENT AUTO 1 % (0-6); Hematocrit 24.9 % (33.0-51.0); Hemoglobin 8.1 g/dL (11.5-16.0); IMMATURE GRAN ABSOLUTE AUTO 0.09 K/mm3 (0.00-0.10); IMMATURE GRAN PERCENT AUTO 2 % (0-1); LYMPHOCYTES ABSOLUTE AUTO 0.42 K/mm3 (0.84-5.20); LYMPHOCYTES PERCENT AUTO 9 % (21-46); MONOCYTES ABSOLUTE AUTO 0.55 K/mm3 (0.16-1.47); MONOCYTES PERCENT AUTO 12 % (4-13); Mean Corpuscular HGB 27.6 pg (26.0-34.0); Mean Corpuscular HGB Conc 32.5 g/dL (31.5-36.5); Mean Corpuscular Volume 85 fL (80-100); NEUTROPHILS ABSOLUTE AUTO 3.65 K/mm3 (1.96-9.15); NEUTROPHILS PERCENT AUTO 76 % (41-73); NRBC ABSOLUTE 0.08 K/mm3 (0.00-0.02); NRBC Auto 1.7 /100 WBC (0.0-0.2); Platelet Count 56 K/mm3 (150-400); RDW Coefficient Variation 22.7 % (11.7-14.2); RDW Standard Deviation 68.5 fL (35.1-46.3); Red Blood Cell Count 2.94 M/mm3 (3.80-5.20); White Blood Cell Count 4.78 K/mm3 (4.00-11.30)
[2020-08-22 15:55] LABS: Alanine Aminotransfer (ALT/SGP 23 U/L (12-78); Albumin/Globulin Ratio 0.4 (0.8-1.8); Alk Phos 296 U/L (50-136); Anion Gap 7 mmol/L (6-16); Aspartate Aminotrans (AST/SGOT 93 U/L (12-37); Bilirubin, Total 9.6 mg/dL (0.1-1.0); Blood Urea Nitrogen 30 mg/dL (8-24); Bun/Creatinine Ratio 37.4 (12.0-20.0); CO2, Blood 25 mmol/L (21-32); Calcium, Blood 8.6 mg/dL (8.5-10.1); Chloride, Blood 95 mmol/L (98-108); Globulin, Blood 5.4 g/dL (2.2-4.0); Glomerular Filtration Rate >60 (60-); Glucose, Blood 110 mg/dL (70-99); Potassium, Blood 3.8 mmol/L (3.5-5.5); Sodium, Blood 127 mmol/L (136-145); Total Protein, Blood 7.4 g/dL (6.4-8.2)
[2020-08-22 16:56] LABS: Troponin I <0.015 ng/mL (0.000-0.040)
[2020-08-22 17:55] LABS: Source, Urine Catheter
[2020-08-22 18:01] LABS: Blood, Urine Neg (Neg); Glucose Qualitative, Urine Neg (Neg); Ketones, Urine Neg (Neg); Leukocyte Esterase, Urine 2+ (Neg); Nitrite, Urine Pos (Neg); Protein, Urine 2+ (Neg); Specific Gravity, Urine 1.015 (1.003-1.022); Urobilinogen, Urine 4+ (Normal)
[2020-08-22 18:09] LABS: Appearance, Urine Cloudy (Clear); Bilirubin, Urine 3+ (Neg); Color, Urine Orange (P-Yellow)
[2020-08-22 18:10] LABS: Bacteria Many /hpf; Red Blood Cells, Urine 0-2 /hpf (0-2); Transitional Epithelial Cells Few /hpf (0-Rare); White Blood Cells, Urine TNTC /hpf (0-5)
[2020-08-22 18:11] LABS: Renal Epithelial Rare /hpf (0-Rare); Squamous Epithelial Cells Rare /hpf (Few)
[2020-08-22] MEDS ORDERED: ONDA4ODT MM (18:39)
[2020-08-22] MEDS ORDERED: ATOR20 PO (18:39)
[2020-08-23 00:11] LABS: Hematocrit 20.5 % (33.0-51.0); Hemoglobin 6.9 g/dL (11.5-16.0)
[2020-08-23 00:57] LABS: Percent Saturation 94.1 % (15.0-50.0)
--- NOTE | 2020-08-23 04:31 | NUR ---
SHIFT SUMMARY RECIEVED REPORT FROM TINY SPAIN, PATIENT TO ROOM VIA STRETCHER @9359, SLID TO BED. PATIENT IS ALERT AND ORIENTED X4. IRRITABLE BUT COOPERATIVE. Q 2HOUR TURNS. UP TO BEDSIDE COMMODE 2 PERSON ASSIST WITH FWW, PT REFUSES TO USE BEDPAN. PATIENT INCONTINENT AND HAD SMALL LIQUID BLOODY STOOL. PRESSURE ULCER AND DRY CRACKED COCCYX, MEPALEX APPLIED, PICTURES IN CHART. PATIENT APPEARS JAUNDICE AND URINE DARK DILIP COLOR, MACK DRAINING. 02 SATS 95% ON RA, LUNGS COARSE. HGB DROPPED TO 6.9, CALLED HOSPITALIST AND TRANSFUSED 1 UNIT PRBCs. VSS, NO ACUTE CHANGES. CALL LIGHT IN REACH.
[2020-08-23 06:18] LABS: BASOPHILS ABSOLUTE AUTO 0.01 K/mm3 (0.00-0.23); BASOPHILS PERCENT AUTO 0 % (0-2); EOSINOPHILS ABSOLUTE AUTO 0.03 K/mm3 (0.00-0.68); EOSINOPHILS PERCENT AUTO 1 % (0-6); Hematocrit 20.2 % (33.0-51.0); Hemoglobin 6.9 g/dL (11.5-16.0); IMMATURE GRAN ABSOLUTE AUTO 0.06 K/mm3 (0.00-0.10); IMMATURE GRAN PERCENT AUTO 1 % (0-1); LYMPHOCYTES ABSOLUTE AUTO 0.22 K/mm3 (0.84-5.20); LYMPHOCYTES PERCENT AUTO 4 % (21-46); MONOCYTES ABSOLUTE AUTO 0.31 K/mm3 (0.16-1.47); MONOCYTES PERCENT AUTO 6 % (4-13); Mean Corpuscular HGB 27.4 pg (26.0-34.0); Mean Corpuscular HGB Conc 34.2 g/dL (31.5-36.5); NEUTROPHILS ABSOLUTE AUTO 4.65 K/mm3 (1.96-9.15); NEUTROPHILS PERCENT AUTO 88 % (41-73); NRBC ABSOLUTE 0.03 K/mm3 (0.00-0.02); NRBC Auto 0.6 /100 WBC (0.0-0.2); RDW Coefficient Variation 22.3 % (11.7-14.2); Red Blood Cell Count 2.52 M/mm3 (3.80-5.20); White Blood Cell Count 5.28 K/mm3 (4.00-11.30)
[2020-08-23 06:37] LABS: Lactate Dehydrogenase (Ld),Bld 278 U/L (100-240)
[2020-08-23 07:09] LABS: Alanine Aminotransfer (ALT/SGP 19 U/L (12-78); Albumin, Blood 1.6 g/dL (3.4-5.0); Albumin/Globulin Ratio 0.4 (0.8-1.8); Alk Phos 226 U/L (50-136); Anion Gap 6 mmol/L (6-16); Aspartate Aminotrans (AST/SGOT 69 U/L (12-37); Bilirubin, Total 9.3 mg/dL (0.1-1.0); Blood Urea Nitrogen 30 mg/dL (8-24); Bun/Creatinine Ratio 35.9 (12.0-20.0); CO2, Blood 27 mmol/L (21-32); Calcium, Blood 7.5 mg/dL (8.5-10.1); Chloride, Blood 96 mmol/L (98-108); Creatinine, Blood 0.84 mg/dL (0.40-1.00); Globulin, Blood 3.8 g/dL (2.2-4.0); Glomerular Filtration Rate >60 (60-); Glucose, Blood 109 mg/dL (70-99); Potassium, Blood 3.8 mmol/L (3.5-5.5); Sodium, Blood 129 mmol/L (136-145)
[2020-08-23 07:10] LABS: Total Protein, Blood 5.4 g/dL (6.4-8.2)
[2020-08-23 07:19] LABS: International Normalized Ratio 1.53; Prothrombin Time Results 16.1 Sec (9.7-11.5)
[2020-08-23 07:28] LABS: Mean Corpuscular Volume 80 fL (80-100)
[2020-08-23 07:32] LABS: Platelet Count 34 K/mm3 (150-400)
[2020-08-23 12:40] LABS: Automated BF WBC Count 0.036 K/mm3 (0-999); Body Fluid WBC Count 36 /mm3 (0-999)
[2020-08-23 12:41] LABS: Albumin, Body Fluid 0.2 g/dL
[2020-08-23 12:46] LABS: Glucose, Body Fluid 120 mg/dL
[2020-08-23 12:49] LABS: Protein, Body Fluid 0.7 g/dL
[2020-08-23 12:52] LABS: Lactate Dehydrogenase, Body Fl 45 U/L
[2020-08-23 13:01] LABS: RBC Count, Body Fluid 158 /mm3 (0-0)
[2020-08-23 13:09] LABS: Total Cell Count, Body Fluid 100
[2020-08-23 13:10] LABS: Appearance, Body Fluid Clear (Clear); Color, Body Fluid L Yellow (None-Yellow)
--- NOTE | 2020-08-23 13:41 | NUR ---
1 UNIT PRBC INFUSED, VSS, NO CHANGES IN LUNG SOUNDS. PT DENIES ANY DISTRESS. STAT H&H ORDERED.
[2020-08-23 14:31] LABS: SARS-Cov-2 (COVID-19) PCR, MMC NEGATIVE (NEGATIVE)
[2020-08-23 15:11] LABS: Hematocrit 22.1 % (33.0-51.0); Hemoglobin 7.6 g/dL (11.5-16.0)
[2020-08-23] MEDS ORDERED: SPIR25 PO (17:53)
--- NOTE | 2020-08-23 18:35 | NUR ---
SHIFT [facility] AND PARACENTESIS COMPLETED THIS SHIFT. CONTINUES TO HAVE POOR APPETITE. DENIES ANY DISTRESS, PAIN, SOB OR CP. A&O, VSS. 1 UNIT PRBC INFUSED, HGB NOW 7.6. YOVANNY REPORTED TO CHARGE TO HOLD 2ND UNIT OF PRBC. LOOSE STOOLS CONTINUE, NO BLOOD NOTED IN STOOL TODAY. MACK PATENT AND DRAINING DARK BROWN URINE. PT IS CURRENTLY RESTING IN BED, CALL LIGHT WITHIN REACH. CALLS APPROPRIATELY.
[2020-08-23 23:19] LABS: Hematocrit 20.1 % (33.0-51.0); Hemoglobin 6.9 g/dL (11.5-16.0)
--- NOTE | 2020-08-24 04:50 | NUR ---
SHIFT SUMMARY PATIENT IS ALERT AND ORIENTED X4. COOPERATIVE WITH CARE. Q2 HOUR TURNING, 2 PERSON ASSIST. PATIENT WORE BLE SCDs MOST THE NIGHT. URINE APPEARS DARK BROWN STILL. 1 SMALL BOWEL MOVEMENT NOTED, NO BLOOD, BROWN IN COLOR. Hgb 6.9 FOR 2200 LAB DRAW, TRANSFUSED 1 UNIT PRBCs PER ORDER. 02 SATS 95% ON RA. VSS, NO ACUTE CHANGES. CALL LIGHT IN REACH.
[2020-08-24 05:53] LABS: BASOPHILS ABSOLUTE AUTO 0.01 K/mm3 (0.00-0.23); BASOPHILS PERCENT AUTO 0 % (0-2); Hemoglobin 8.1 g/dL (11.5-16.0); LYMPHOCYTES PERCENT AUTO 4 % (21-46); NRBC ABSOLUTE 0.02 K/mm3 (0.00-0.02)
[2020-08-24 05:55] LABS: Hematocrit 23.2 % (33.0-51.0); LYMPHOCYTES ABSOLUTE AUTO 0.15 K/mm3 (0.84-5.20); MONOCYTES PERCENT AUTO 6 % (4-13); Mean Corpuscular HGB 28.1 pg (26.0-34.0); Mean Corpuscular HGB Conc 34.9 g/dL (31.5-36.5); Mean Corpuscular Volume 81 fL (80-100); NRBC Auto 0.6 /100 WBC (0.0-0.2); RDW Coefficient Variation 20.4 % (11.7-14.2); RDW Standard Deviation 59.7 fL (35.1-46.3); Red Blood Cell Count 2.88 M/mm3 (3.80-5.20); White Blood Cell Count 3.57 K/mm3 (4.00-11.30)
[2020-08-24 06:17] LABS: Alanine Aminotransfer (ALT/SGP 16 U/L (12-78); Albumin, Blood 1.8 g/dL (3.4-5.0); Albumin/Globulin Ratio 0.5 (0.8-1.8); Alk Phos 192 U/L (50-136); Anion Gap 6 mmol/L (6-16); Aspartate Aminotrans (AST/SGOT 53 U/L (12-37); Bilirubin, Total 12.3 mg/dL (0.1-1.0); Blood Urea Nitrogen 25 mg/dL (8-24); Bun/Creatinine Ratio 36.2 (12.0-20.0); CO2, Blood 27 mmol/L (21-32); Calcium, Blood 7.3 mg/dL (8.5-10.1); Chloride, Blood 98 mmol/L (98-108); Creatinine, Blood 0.69 mg/dL (0.40-1.00); Globulin, Blood 3.3 g/dL (2.2-4.0); Glomerular Filtration Rate >60 (60-); Glucose, Blood 111 mg/dL (70-99); Magnesium, Blood 1.8 mg/dL (1.6-2.4); Phosphorus, Blood 1.2 mg/dL (2.5-4.9); Potassium, Blood 3.4 mmol/L (3.5-5.5); Sodium, Blood 131 mmol/L (136-145); Total Protein, Blood 5.1 g/dL (6.4-8.2)
[2020-08-24 06:46] LABS: EOSINOPHILS ABSOLUTE AUTO 0.04 K/mm3 (0.00-0.68); EOSINOPHILS PERCENT AUTO 1 % (0-6); IMMATURE GRAN ABSOLUTE AUTO 0.05 K/mm3 (0.00-0.10); IMMATURE GRAN PERCENT AUTO 1 % (0-1); NEUTROPHILS ABSOLUTE AUTO 3.12 K/mm3 (1.96-9.15); NEUTROPHILS PERCENT AUTO 87 % (41-73); Platelet Count 23 K/mm3 (150-400)
[2020-08-24 06:54] LABS: BAND PERCENT MAN 8 % (0-8); BASOPHILS ABSOLUTE MAN 0.03 K/mm3 (0.00-0.23); BASOPHILS PERCENT MAN 1 % (0-2); EOSINOPHILS ABSOLUTE MAN 0.03 K/mm3 (0.00-0.68); EOSINOPHILS PERCENT MAN 1 % (0-6); LYMPHOCYTES ABSOLUTE MAN 0.03 K/mm3 (0.84-5.20); LYMPHOCYTES PERCENT MAN 1 % (21-46); MONOCYTES PERCENT MAN 3 % (4-13); NEUTROPHILS ABSOLUTE MAN 3.35 K/mm3 (1.96-9.15); SEG NEUTROPHILS PERCENT MAN 86 % (41-73); TOTAL CELLS COUNTED 100
--- NOTE | 2020-08-24 15:17 | NUR ---
History, Chart, Medications and Allergies reviewed before start of procedure. Lungs clear T/O to Auscultation. Patient confirms NPO status and agrees with scheduled surgery. Pre-Op teaching done. Pt verbalizes understanding.
--- NOTE | 2020-08-24 17:06 | NUR ---
08/24/20 1706 [place] History, Chart, Medications and Allergies reviewed before start of procedure. MONITOR INTACT WITH CONTINUOUS PULSE OXIMETRY AND INTERMITTENT BP. 3-LEAD EKG BEING MONITORED DURING PROCEDURE. O2 VIA N/C INTACT THROUGHOUT SEDATION/PROCEDURE. Bite Block Placed. See Anesthesia record: DR FERNANDO.
--- NOTE | 2020-08-24 18:34 | NUR ---
PT WENT TO DAY SURGERY FOR UPPER GI SCOPE FROM 1501 TO 1745; PT TURNED Q2H; PT VSS; SEVERE WEEPING EDEMA IN MULTIPLE EXTREMITIES; PT'S URINE DARK TEA COLOR IN CATHETER; PT GIVEN CATHETER CARE 4X; PT HAD SMALL BM; PT REPORTED NO APPETITE; PT NPO ALL DAY FOR SCOPE PROCEDURE; PT CONTINUOUSLY RECEIVING PANTOPRAZOLE DRIP; PT DROWSY WHEN SHE RETURNED FROM PROCEDURE AT TIME OF THIS WRITING; PT DENIES ADDITIONAL CONCERNS AT THIS TIME
--- NOTE | 2020-08-24 18:57 | NUR ---
PT'S LAST SEVERAL VS MEASUREMENTS HAD SBP IN 190'S; PT VOMITED/COUGHED UP A SMALL AMOUNT OF THICK DECLAN SEALS-RED BLOOD; DR. HAIRSTON NOTIFIED OF THIS AND OF SYSTOLIC BP'S AT 1858 VIA PHONE; ORDERS PROVIDED FOR KATE MACDONALD
--- NOTE | 2020-08-24 19:50 | NUR ---
PT HAS GENERALIZED WEAKNESS. PT IS MORBIDLY OBESE. REPORT FROM PREVIOUS SHIFT, IS PT HAD AN UPPER SCOPE TODAY, WITH TREATMENT - SEE REPORT. PT HAD A SMALL AMOUNT OF BLOOD, 1/2 DOLLAR SIZE IN EMESIS BAG. PROTONIX DRIP INFUSING WITHOUT DIFFICULTY TO MAGDA POWER GLIDE. PT DENIES ANY NAUSEA AT THIS TIME. PT IS JAUNDICED. REPORT FROM PREVIOUS SHIFT IS PT HAD A PARACENTESIS ON THE WITH 4L REMOVED. KPHOS INFUSING, NORMAL SALINE CURRENTLY OFF, WILL RESTART NORMAL SALINE WHEN KPHOS COMPLETE. MACK IS DRAINING DARK TEA COLORED URINE. CALL LIGHT WITHIN REACH. BED IN LOW POSITION. FLUIDS AT BEDSIDE.
--- NOTE | 2020-08-25 02:03 | NUR ---
PT HAVING NAUSEA, NO EMESIS. PT ALSO REPORTS UPPER ABDOMINAL PAIN, AND REPORTED SHE OCCASIONALLY TAKES OXYCODONE AT HOME. CONTACTED DR. FORREST, ORDER OBTAINED FOR ZOFRAN, AND DR. FORREST REQUESTED A KPAD TO PT'S UPPER ABDOMEN.
--- NOTE | 2020-08-25 02:32 | NUR ---
RESTARTED NORMAL SALINE AT 100 HOUR - RESTARTED NORMAL SALINE BAG HANGING FROM PREVIOUS SHIFT.
[2020-08-25 06:06] LABS: BASOPHILS ABSOLUTE AUTO 0.01 K/mm3 (0.00-0.23); BASOPHILS PERCENT AUTO 0 % (0-2); EOSINOPHILS ABSOLUTE AUTO 0.06 K/mm3 (0.00-0.68); EOSINOPHILS PERCENT AUTO 2 % (0-6); Hematocrit 25.5 % (33.0-51.0); Hemoglobin 8.9 g/dL (11.5-16.0); IMMATURE GRAN ABSOLUTE AUTO 0.04 K/mm3 (0.00-0.10); IMMATURE GRAN PERCENT AUTO 1 % (0-1); LYMPHOCYTES ABSOLUTE AUTO 0.23 K/mm3 (0.84-5.20); LYMPHOCYTES PERCENT AUTO 6 % (21-46); MONOCYTES ABSOLUTE AUTO 0.21 K/mm3 (0.16-1.47); MONOCYTES PERCENT AUTO 6 % (4-13); Mean Corpuscular HGB 28.1 pg (26.0-34.0); Mean Corpuscular HGB Conc 34.9 g/dL (31.5-36.5); Mean Corpuscular Volume 80 fL (80-100); NEUTROPHILS ABSOLUTE AUTO 3.18 K/mm3 (1.96-9.15); NEUTROPHILS PERCENT AUTO 85 % (41-73); NRBC ABSOLUTE 0.03 K/mm3 (0.00-0.02); NRBC Auto 0.8 /100 WBC (0.0-0.2); RDW Coefficient Variation 20.3 % (11.7-14.2); RDW Standard Deviation 58.5 fL (35.1-46.3); Red Blood Cell Count 3.17 M/mm3 (3.80-5.20); White Blood Cell Count 3.73 K/mm3 (4.00-11.30)
[2020-08-25 06:23] LABS: Alanine Aminotransfer (ALT/SGP 18 U/L (12-78); Albumin, Blood 1.9 g/dL (3.4-5.0); Albumin/Globulin Ratio 0.5 (0.8-1.8); Alk Phos 212 U/L (50-136); Anion Gap 6 mmol/L (6-16); Aspartate Aminotrans (AST/SGOT 59 U/L (12-37); Bilirubin, Total 10.1 mg/dL (0.1-1.0); Blood Urea Nitrogen 23 mg/dL (8-24); Bun/Creatinine Ratio 35.5 (12.0-20.0); CO2, Blood 27 mmol/L (21-32); Calcium, Blood 7.2 mg/dL (8.5-10.1); Chloride, Blood 96 mmol/L (98-108); Creatinine, Blood 0.65 mg/dL (0.40-1.00); Ferritin, Serum 796 ng/mL (8-252); Globulin, Blood 3.6 g/dL (2.2-4.0); Glomerular Filtration Rate >60 (60-); Glucose, Blood 114 mg/dL (70-99); Iron Serum 127 ug/dL (50-170); Magnesium, Blood 1.8 mg/dL (1.6-2.4); Percent Saturation 100.8 % (15.0-50.0); Phosphorus, Blood 2.8 mg/dL (2.5-4.9); Sodium, Blood 129 mmol/L (136-145); Total Iron Binding Capacity 126 ug/dL (250-450); Total Protein, Blood 5.5 g/dL (6.4-8.2)
[2020-08-25 06:36] LABS: Platelet Count 22 K/mm3 (150-400)
--- NOTE | 2020-08-25 07:46 | NUR ---
SHIFT SUMMARY - NO ACUTE CHANGES THROUGHOUT THIS SHIFT. PT SLEPT FOR APPX 4-5 HOURS TONIGHT. NO FURTHER EPISODES OF BLOODY SPUTUM, EXCEPT PREVIOUSLY DOCUMENTED AT THE BEGINNING OF THE SHIFT. PROTONIX DRIP/NORMAL SALINE INFUSING TO R UA POWER GLIDE WITHOUT COMPLICATIONS. KPAD IN PLACE TO ABDOMEN. PT MEDICATED WITH ZOFRAN X1 WITH GOOD RELIEF. PT WAS ABLE TO TURN HERSELF TO HER RIGHT SIDE X1 UNASSISTED. MACK PUT OUT DARK TEA COLORED URINE. CALL LIGHT WITHIN REACH. BED IN LOW POSITION. REPORT GIVEN TO GRABIEL SWANSON THIS AM.
--- NOTE | 2020-08-25 11:40 | NUR ---
ASSUMED CARE OF PT FROM GRABIEL SWANSON.
--- NOTE | 2020-08-25 12:40 | NUR ---
PT C/O OF 11/06 BACK PAIN. PT REPOSITIONED UP TO RECLINER CHAIR. ISTRATE CONTACTED BY THIS RN TO REQUEST PT'S OXYCODONE ORDER BE CHANGED TO Q 4HR PRN FOR BETTER PAIN CONTROL. ORDERS RECEIVED AND PT MEDICATED FOR PAIN.
--- NOTE | 2020-08-25 18:09 | NUR ---
PT UP TO RECLINER CHAIR FOR MOST OF THE DAY. MEDICATED PER EMAR FOR BACK PAIN. PT APPEARED TO REST WELL FOR A FEW HOURS, EYES CLOSED, RESPIRATIONS EVEN AND UNLABORED. PT DID NOT HAVE MUCH PO INTAKE AT LUNCH OR DINNER, JUST A CONTAINER OF APPLE JUICE AT EACH MEAL. PT DID NOT WANT THE BROTH OR CLEAR ENSURE SUPPLEMENT. PT OFFERED OTHER CLEAR LIQUID ALTERNATIVES, WHICH SHE DECLINED, STATING "I AM JUST NOT HUNGRY." PROTONIX GTT CONTINUES TO INFUSE. MACK IS PRODUCING DARK DILIP URINE. LUE REMAINS 3+ EDEMA, ARM WAS ELEVATED ON PILLOWS WHILE UP IN CHAIR. PT IS A TWO PERSON MAX TRANSFER STAND AND PIVOT TO BED/CHAIR. PALLIATIVE CARE CONSULT PLACED TODAY FOR ANTICIPATED CARE PLANNING NEEDS GOING FORWARD. WILL CONTINUE TO MONITOR AND REPORT OFF TO NOC SHIFT RN.
[2020-08-26 04:20] LABS: BASOPHILS ABSOLUTE AUTO 0.02 K/mm3 (0.00-0.23); BASOPHILS PERCENT AUTO 1 % (0-2); EOSINOPHILS PERCENT AUTO 2 % (0-6); Hematocrit 27.3 % (33.0-51.0); Hemoglobin 9.4 g/dL (11.5-16.0); IMMATURE GRAN ABSOLUTE AUTO 0.04 K/mm3 (0.00-0.10); IMMATURE GRAN PERCENT AUTO 1 % (0-1); LYMPHOCYTES ABSOLUTE AUTO 0.33 K/mm3 (0.84-5.20); LYMPHOCYTES PERCENT AUTO 8 % (21-46); MONOCYTES ABSOLUTE AUTO 0.34 K/mm3 (0.16-1.47); MONOCYTES PERCENT AUTO 8 % (4-13); Mean Corpuscular HGB 27.8 pg (26.0-34.0); Mean Corpuscular HGB Conc 34.4 g/dL (31.5-36.5); Mean Corpuscular Volume 81 fL (80-100); NEUTROPHILS ABSOLUTE AUTO 3.41 K/mm3 (1.96-9.15); NEUTROPHILS PERCENT AUTO 80 % (41-73); NRBC ABSOLUTE 0.03 K/mm3 (0.00-0.02); NRBC Auto 0.7 /100 WBC (0.0-0.2); RDW Coefficient Variation 20.3 % (11.7-14.2); RDW Standard Deviation 59.2 fL (35.1-46.3); Red Blood Cell Count 3.38 M/mm3 (3.80-5.20); White Blood Cell Count 4.24 K/mm3 (4.00-11.30)
[2020-08-26 04:24] LABS: Platelet Count 20 K/mm3 (150-400)
[2020-08-26 04:51] LABS: Alanine Aminotransfer (ALT/SGP 19 U/L (12-78); Albumin, Blood 1.8 g/dL (3.4-5.0); Albumin/Globulin Ratio 0.5 (0.8-1.8); Alk Phos 212 U/L (50-136); Anion Gap 8 mmol/L (6-16); Aspartate Aminotrans (AST/SGOT 61 U/L (12-37); Bilirubin, Total 9.6 mg/dL (0.1-1.0); Blood Urea Nitrogen 26 mg/dL (8-24); CO2, Blood 24 mmol/L (21-32); Calcium, Blood 7.2 mg/dL (8.5-10.1); Chloride, Blood 96 mmol/L (98-108); Creatinine, Blood 0.79 mg/dL (0.40-1.00); Globulin, Blood 3.8 g/dL (2.2-4.0); Glomerular Filtration Rate >60 (60-); Glucose, Blood 120 mg/dL (70-99); Magnesium, Blood 1.8 mg/dL (1.6-2.4); Phosphorus, Blood 2.5 mg/dL (2.5-4.9); Potassium, Blood 4.3 mmol/L (3.5-5.5); Sodium, Blood 128 mmol/L (136-145); Total Protein, Blood 5.6 g/dL (6.4-8.2)
[2020-08-26 08:10] LABS: HBSAG SCREEN Negative (Negative); HEP B CORE AB, TOT Negative (Negative); HEP C VIRUS AB 0.2 (0.0-0.9)
--- NOTE | 2020-08-26 09:00 | NUR ---
INITIAL ASSESMENT: PT IS RESTING WITH EYES CLOSED, EASILY AWAKENSTO VERBAL STIMULI. PT IS OX3. DENIES PAIN AT THIS TIME. HRR. LS DIM AND COARSE IN THE BASES BIOX WNL ON RA. BT+. PT IS JAUNDICED. MACK IN PLACE PATENT AND DRAINING DARK DILIP URINE. SWELLING NOTED TO THE LEFT UPPER ARM, 3+ PT STATES THIS IS CHRONIC. EDEMA TO BLE 1-2 + PITTING UP TO HER KNEES. VSS. AM MEDS GIVEN WITH A SIP OF WATER ONE AT A TIME. PT DENIES OTHER NEEDS AT THIS TIME. REPORT GIVEN TO NUVIA SPAIN.
--- NOTE | 2020-08-26 12:42 | NUR ---
Assumed care of this pt this morning at 9 am. She is a/o x 3-4 and appears to have a childlike demeanor and she is forgetful at times. She needs encouragement to reposition in the bed as she "just wants to stay in one spot". The dressing to her coccyx was changed. Her coulter is patent with dark urine output. She has edema throughout her extremities. Tele shows NSR in the 90's. Powerglide in the right upper arm is patent. Dr Amaro changed her to medical status during rounds this morning. Pt uses the call light to make her needs known.
--- NOTE | 2020-08-26 17:22 | NUR ---
Spiritual care note: I met with Karoline to offer information about advanced care planning per physician request. She immediately became irritable and told me "I have filled one out for you guys and another one for [place]." When I told her we did not have a copy and asked that she bring her original POLST from home, she replied, "I gave it to you last time I was here!" Attempted to explain that it would be helpful to have a completed POLST/AD on file, she told me "I have done this twice! I am not doing anymore." So, Karoline has made it clear that she does not want to be approached on this subject "ever again."
--- NOTE | 2020-08-26 17:57 | NUR ---
Shift Summary Pt has been alert all day and oriented x 3-4 with confusion at times. She has a flat childlike affect and can be negative and needs redirection and encouragement with ADLs. When attempting to reposition the pt frequnetly reports that she "doesnt care about skin breakdown" and justs wants to stay in one place. She currently has some excoriation on her buttocks and it was cleaned and a dry dressing in intact. Lora remains patent. Dr Amaro changed the pt to medical status but we are still awaiting a bed. Pt requires x 2 assist for re-positioning. She uses her call light when needed and has it in reach.
--- NOTE | 2020-08-26 19:05 | NUR ---
ASSUMED CARE RECEIVED REPORT FROM GRABIEL PEDERSEN. PT TRANSFERRED TO MEDICAL FLOOR FROM PCU VIA BED, IN NAD. ALL BELONGINGS C PT. SETTLED INTO ROOM, ORIENTED TO UNIT. NO ACUTE NEEDS ASSESSED AT THIS TIME. CALL LIGHT, POSSESSIONS IN REACH, BED IN LOW AND LOCKED POSITION WITH ALARMS ON.
--- NOTE | 2020-08-27 07:15 | NUR ---
FIRESTOPPER INSTALLER SUMMARY PT ASLEEP, IN NAD. VS REVIEWED,WNL. NO ACUTE CHANGES SINCE TRANSFER FROM PCU. SLEPT T/O NIGHT, ACCEPTING OF CARES; TOLERATED SCDS WELL. MACK CATHETER PATENT AND DRAINING DILIP URINE TO GRAVITY. NO ACUTE NEEDS ASSESSED AT THIS TIME. CALL LIGHT, POSSESSIONS IN REACH, BED IN LOW AND LOCKED POSITION WITH ALARMS ON. REPORT GIVEN TO GRABIEL PEDERSEN.
[2020-08-27 10:33] LABS: Anion Gap 6 mmol/L (6-16); Blood Urea Nitrogen 29 mg/dL (8-24); Bun/Creatinine Ratio 34.6 (12.0-20.0); CO2, Blood 27 mmol/L (21-32); Calcium, Blood 7.4 mg/dL (8.5-10.1); Chloride, Blood 96 mmol/L (98-108); Creatinine, Blood 0.84 mg/dL (0.40-1.00); Glomerular Filtration Rate >60 (60-); Glucose, Blood 132 mg/dL (70-99); Potassium, Blood 4.5 mmol/L (3.5-5.5); Sodium, Blood 129 mmol/L (136-145)
[2020-08-27 11:30] LABS: BASOPHILS ABSOLUTE AUTO 0.01 K/mm3 (0.00-0.23); BASOPHILS PERCENT AUTO 0 % (0-2); EOSINOPHILS ABSOLUTE AUTO 0.09 K/mm3 (0.00-0.68); EOSINOPHILS PERCENT AUTO 2 % (0-6); Hematocrit 26.4 % (33.0-51.0); Hemoglobin 9.1 g/dL (11.5-16.0); IMMATURE GRAN ABSOLUTE AUTO 0.04 K/mm3 (0.00-0.10); IMMATURE GRAN PERCENT AUTO 1 % (0-1); LYMPHOCYTES PERCENT AUTO 5 % (21-46); MONOCYTES PERCENT AUTO 7 % (4-13); Mean Corpuscular HGB 28.3 pg (26.0-34.0); Mean Corpuscular HGB Conc 34.5 g/dL (31.5-36.5); Mean Corpuscular Volume 82 fL (80-100); NEUTROPHILS ABSOLUTE AUTO 4.69 K/mm3 (1.96-9.15); NEUTROPHILS PERCENT AUTO 85 % (41-73); NRBC ABSOLUTE 0.04 K/mm3 (0.00-0.02); NRBC Auto 0.7 /100 WBC (0.0-0.2); RDW Coefficient Variation 20.1 % (11.7-14.2); RDW Standard Deviation 59.7 fL (35.1-46.3); Red Blood Cell Count 3.21 M/mm3 (3.80-5.20); White Blood Cell Count 5.53 K/mm3 (4.00-11.30)
[2020-08-27 11:34] LABS: Platelet Count 16 K/mm3 (150-400)
--- NOTE | 2020-08-27 19:05 | NUR ---
ASSUMED CARE RECEIVED REPORT FROM GRABIEL PEDERSEN. PT RESTING, IN NAD. NO ACUTE NEEDS ASSESSED AT THIS TIME. CALL LIGHT, POSSESSIONS IN REACH, BED IN LOWEST AND LOCKED POSITION WITH ALARMS ON.
--- NOTE | 2020-08-27 19:24 | NUR ---
SUMMARY- PT ALERT AND ORIENTED. BEDREST ALL DAY- ROUTINE TURNS. CARLOS ALBERTO CARE AND MACK CARE. MACK DRAINING DILIP MED YELLOW. PT GOT OOB ABOUT 1630 WITH PT INTO CHAIR. BARELY ABLE TO BEAR WEITHT. WILL NEED TO BE LIFTED BACK TO BED ACCORDING TO SAMMIE PT. PT CONT WITH +3 BODY EDEMA, ABD ASCITES, PT STATES SHE FEELS IT IS GETTING BIGGER WITH MORE PRESURE AGAIN. ALLAN IS +4 EDEMA. PT HAS GEN BODY PAIN, DANIEL ABD BUT DECLINED PAIN MEDS. TOLERATING FOOD AND FLUIDS. GLUT CREASE HAS STAGE 1 AND 2 BREAKDOWN, CLEANSED AND CHANGED MEPILEX THIS AM AROUND 1030. REPORTED ALL TO RUTHANN SPAIN.
--- NOTE | 2020-08-28 04:53 | NUR ---
MANAGER OF CASE MANAGEMENT SUMMARY PT RESTING, STATES SHE HAS BEEN SLEEPING ON AND OFF T/O NIGHT. IN NAD. NO ACUTE CHANGES TO REPORT OVERNIGHT, REPOSITIONED TO MAINTAIN SKIN C/D/I, TOLERATED WELL. VS REVIEWED,WNL. MACK CATHETER PATENT AND DRAINING DARK, BILIOUS-BLOOD TINGED URINE TO GRAVITY. PT MAKES NO C/O URINARY DISCOMFORT. SCDS REMAIN IN PLACE. NO ACUTE NEEDS ASSESSED AT THIS TIME. CALL LIGHT, POSSESSIONS IN REACH, BED IN LOW AND LOCKED POSITION WITH ALARMS ON. AM LAB RESULTS PENDING. WILL CONTINUE TO PROVIDE CARE NEEDED UNTIL REPORT GIVEN TO ONCOMING RN.
[2020-08-28 06:18] LABS: Hematocrit 23.4 % (33.0-51.0); Hemoglobin 8.1 g/dL (11.5-16.0); Mean Corpuscular HGB 28.2 pg (26.0-34.0); Mean Corpuscular HGB Conc 34.6 g/dL (31.5-36.5); Mean Corpuscular Volume 82 fL (80-100); NRBC ABSOLUTE 0.02 K/mm3 (0.00-0.02); NRBC Auto 0.3 /100 WBC (0.0-0.2); RDW Coefficient Variation 19.8 % (11.7-14.2); RDW Standard Deviation 58.4 fL (35.1-46.3); Red Blood Cell Count 2.87 M/mm3 (3.80-5.20)
[2020-08-28 06:27] LABS: Alanine Aminotransfer (ALT/SGP 23 U/L (12-78); Albumin, Blood 1.6 g/dL (3.4-5.0); Albumin/Globulin Ratio 0.4 (0.8-1.8); Alk Phos 211 U/L (50-136); Anion Gap 6 mmol/L (6-16); Aspartate Aminotrans (AST/SGOT 71 U/L (12-37); Bilirubin, Total 11.2 mg/dL (0.1-1.0); Blood Urea Nitrogen 35 mg/dL (8-24); CO2, Blood 26 mmol/L (21-32); Calcium, Blood 7.6 mg/dL (8.5-10.1); Chloride, Blood 95 mmol/L (98-108); Creatinine, Blood 0.83 mg/dL (0.40-1.00); Globulin, Blood 3.7 g/dL (2.2-4.0); Glomerular Filtration Rate >60 (60-); Glucose, Blood 126 mg/dL (70-99); Potassium, Blood 4.8 mmol/L (3.5-5.5); Sodium, Blood 127 mmol/L (136-145); Total Protein, Blood 5.3 g/dL (6.4-8.2)
[2020-08-28 06:43] LABS: Platelet Count 13 K/mm3 (150-400)
[2020-08-28 06:50] LABS: BASOPHILS PERCENT MAN 0 % (0-2); EOSINOPHILS PERCENT MAN 0 % (0-6); LYMPHOCYTES ABSOLUTE MAN 0.29 K/mm3 (0.84-5.20); LYMPHOCYTES PERCENT MAN 5 % (21-46); MONOCYTES ABSOLUTE MAN 0.11 K/mm3 (0.16-1.47); MONOCYTES PERCENT MAN 2 % (4-13); MYELOCYTE ABSOLUTE MAN 0.05 K/mm3 (0.00-0.00); MYELOCYTE PERCENT MAN 1 % (0-0); NEUTROPHILS ABSOLUTE MAN 5.33 K/mm3 (1.96-9.15); SEG NEUTROPHILS PERCENT MAN 92 % (41-73); TOTAL CELLS COUNTED 100
--- NOTE | 2020-08-28 17:31 | NUR ---
SHIFT SUMMARY PT IS AOX2-3 WITH CONFUSION AT TIMES. PT DENIES PAIN, N/V, SOB. PT CONTINUES TO BE A LIFT PT AND WORKED WITH PT/OT. PT APPETITE IS MODERATE TO POOR. THIS RN DC'D PT'S MACK AND PT HAD AN INCONTINENT VOID. PT DID NOT HAVE ANY PROCEDURES THIS SHIFT. PLAN IS FOR SNF PLACEMENT AND ELEVATION OF PT'S PLATELETS. PT DID NOT HAVE VISITORS THIS SHIFT. PT IS IN BED, CALL LIGHT IN REACH, BED IN LOW POSITION.
--- NOTE | 2020-08-28 21:35 | NUR ---
SERGIO RN REPORTED THAT PT'S CATHETER WAS REMOVED AT 1400 AND PT HAD NOT VOIDED. BLADDER SCAN DONE AT [address] FORREST NOTIFIED WITH NEW ORDERS TO SCAN AND STRAIGHT CATH FOR GREATER THAN 400 MLS. STRAIGHT CATH DONE WITH ONLY 100 MLS OF OUTPUT. PT DOES HAVE A HX OF ASCITES AND ABD IS QUITE DISTENDED. ASSUMING THAT BLADDER SCANNER IS READING FLUID IN ABD RATHER THAN BLADDER.
[2020-08-29 05:29] LABS: BASOPHILS ABSOLUTE AUTO 0.01 K/mm3 (0.00-0.23); BASOPHILS PERCENT AUTO 0 % (0-2); Hematocrit 18.6 % (33.0-51.0); Hemoglobin 6.3 g/dL (11.5-16.0); LYMPHOCYTES ABSOLUTE AUTO 0.29 K/mm3 (0.84-5.20); LYMPHOCYTES PERCENT AUTO 4 % (21-46); MONOCYTES ABSOLUTE AUTO 0.37 K/mm3 (0.16-1.47); MONOCYTES PERCENT AUTO 5 % (4-13); Mean Corpuscular HGB 27.5 pg (26.0-34.0); Mean Corpuscular HGB Conc 33.9 g/dL (31.5-36.5); Mean Corpuscular Volume 81 fL (80-100); NRBC ABSOLUTE 0.03 K/mm3 (0.00-0.02); NRBC Auto 0.4 /100 WBC (0.0-0.2); RDW Coefficient Variation 19.9 % (11.7-14.2); RDW Standard Deviation 59.1 fL (35.1-46.3); Red Blood Cell Count 2.29 M/mm3 (3.80-5.20); White Blood Cell Count 7.29 K/mm3 (4.00-11.30)
[2020-08-29 05:39] LABS: EOSINOPHILS ABSOLUTE AUTO 0.05 K/mm3 (0.00-0.68); EOSINOPHILS PERCENT AUTO 1 % (0-6); IMMATURE GRAN ABSOLUTE AUTO 0.06 K/mm3 (0.00-0.10); IMMATURE GRAN PERCENT AUTO 1 % (0-1); NEUTROPHILS ABSOLUTE AUTO 6.51 K/mm3 (1.96-9.15); NEUTROPHILS PERCENT AUTO 89 % (41-73)
[2020-08-29 05:40] LABS: Platelet Count 12 K/mm3 (150-400)
[2020-08-29 05:45] LABS: Albumin, Blood 1.5 g/dL (3.4-5.0); Albumin/Globulin Ratio 0.5 (0.8-1.8); Bilirubin, Total 10.7 mg/dL (0.1-1.0); Bun/Creatinine Ratio 40.2 (12.0-20.0); Calcium, Blood 7.8 mg/dL (8.5-10.1); Creatinine, Blood 1.12 mg/dL (0.40-1.00); Globulin, Blood 3.2 g/dL (2.2-4.0); Potassium, Blood 5.3 mmol/L (3.5-5.5); Total Protein, Blood 4.7 g/dL (6.4-8.2)
--- NOTE | 2020-08-29 06:38 | NUR ---
SHIFT SUMMARY PT HAD A DIFFICULT NIGHT. AWAKE MUCH OF THE NIGHT. COULD NOT STAY COMFORTABLE IN THE BED. COMPLAINING OF HER BOTTOM AND ABD HURTING. ABD VERY DISTENDED. PREVIOUS PARACENTESIS SITE ON R ABD LEAKING FLUID. DRESSING APPLIED. PT ALSO HAVING DIFFICULTY VOIDING THIS EVENING. NEW ORDER TO STRAIGHT CATH FOR BLADDER SCAN > 400 ML. STRAIGHT CATH DONE X 1 WITH LITTLE OUTPUT AFTER LARGE READING ON THE BLADDER SCANNER. URINE IS DARK, BLOOD TINGED, AND BILIOUS. CARLOS ALBERTO AREA IS EXCORIATED. BARRIER CREAM APPLIED. PT HYPOTENSIVE THIS AM WITH SYSTOLIC IN THE 80'S. INITIALLY 500 CC BOLUS GIVEN WITH LITTLE IMPROVEMENT. THEN LAB RESULTS CAME IN WITH HGB 6.3 THIS AM AND PLT OF 12. NOTIFIED DR. WARE. NEW ORDERS TO TRANSFUSE 1 UNIT OF PRBC'S. ORDERS PLACED. LAB DRAWN FOR TYPE AND SCREEN FROM POWERGLIDE. AWAITING BLOOD SLIPS. PT WEAK AND TIRED THIS AM. PT IS JAUNDICED. ASIDE FROM HYPOTENSION VITAL SIGNS STABLE. WILL CONTINUE TO MONITOR AND REPORT TO DAY RN.
[2020-08-29 13:23] LABS: Hematocrit 22.1 % (33.0-51.0); Hemoglobin 7.7 g/dL (11.5-16.0); Mean Corpuscular HGB 29.3 pg (26.0-34.0); Mean Corpuscular HGB Conc 34.8 g/dL (31.5-36.5); Mean Corpuscular Volume 84 fL (80-100); NRBC ABSOLUTE 0.03 K/mm3 (0.00-0.02); NRBC Auto 0.3 /100 WBC (0.0-0.2); RDW Coefficient Variation 18.6 % (11.7-14.2); RDW Standard Deviation 56.6 fL (35.1-46.3); Red Blood Cell Count 2.63 M/mm3 (3.80-5.20); White Blood Cell Count 8.72 K/mm3 (4.00-11.30)
[2020-08-29 13:30] LABS: Platelet Count 12 K/mm3 (150-400)
[2020-08-29 13:46] LABS: BAND PERCENT MAN 19 % (0-8); BASOPHILS PERCENT MAN 0 % (0-2); EOSINOPHILS PERCENT MAN 0 % (0-6); LYMPHOCYTES % ATYPICAL MANUAL 2 % (0-0); LYMPHOCYTES ABSOLUTE MAN 0.17 K/mm3 (0.84-5.20); MONOCYTES ABSOLUTE MAN 0.17 K/mm3 (0.16-1.47); MONOCYTES PERCENT MAN 2 % (4-13); NEUTROPHILS ABSOLUTE MAN 8.37 K/mm3 (1.96-9.15); SEG NEUTROPHILS PERCENT MAN 77 % (41-73); TOTAL CELLS COUNTED 100
[2020-08-29 17:34] LABS: Mean Platelet Volume 9.7 fL (9.1-12.4)
[2020-08-29 17:38] LABS: Platelet Count 42 K/mm3 (150-400)
--- NOTE | 2020-08-29 19:08 | NUR ---
SHIFT SUMMARY PT IS AOX2-3 WITH INTERMITTENT CONFUSION THIS SHIFT. PT DENIES PAIN, N/V, SOB. PT IS BEDREST AND LIFT TO RECLINER. PT WAS NOT SEEN BY PT TODAY DUE TO LETHARGY AND STATUS. DRESSING ON COCCYX CHANGED THIS MALIA. PT HAS NOT HAD BM WITH BOWEL PREP MEDS. PT HAD TO BE STRAIGHT CATHED THIS MALIA AND CONTINUES TO HAVE MINIMAL OUTPUT. PT RECIEVED 1 UNIT PRBC AND 1 UNIT PLATELETS. PLAN IS FOR US GUIDED PARACENTESIS TOMORROW. PT HAD CRITICAL PLATELET OF 45 AFTER PLATELET INFUSION. PT'S GRANDSON VISITED TODAY. PT IS IN BED, CALL LIGHT IN REACH, BED IN LOW POSITION.
[2020-08-30 05:27] LABS: Hemoglobin 6.1 g/dL (11.5-16.0); Mean Corpuscular HGB 29.5 pg (26.0-34.0); Mean Corpuscular HGB Conc 35.7 g/dL (31.5-36.5); Mean Corpuscular Volume 83 fL (80-100); RDW Coefficient Variation 18.6 % (11.7-14.2); Red Blood Cell Count 2.07 M/mm3 (3.80-5.20); White Blood Cell Count 7.22 K/mm3 (4.00-11.30)
[2020-08-30 05:34] LABS: Hematocrit 17.1 % (33.0-51.0)
[2020-08-30 05:35] LABS: Platelet Count 21 K/mm3 (150-400)
[2020-08-30 05:45] LABS: Albumin, Blood 1.8 g/dL (3.4-5.0); Albumin/Globulin Ratio 0.6 (0.8-1.8); Bilirubin, Total 13.7 mg/dL (0.1-1.0); Bun/Creatinine Ratio 43.1 (12.0-20.0); Creatinine, Blood 1.37 mg/dL (0.40-1.00); Globulin, Blood 2.8 g/dL (2.2-4.0); Potassium, Blood 5.4 mmol/L (3.5-5.5); Total Protein, Blood 4.6 g/dL (6.4-8.2)
[2020-08-30 05:47] LABS: BAND PERCENT MAN 10 % (0-8); BASOPHILS PERCENT MAN 0 % (0-2); EOSINOPHILS ABSOLUTE MAN 0.21 K/mm3 (0.00-0.68); EOSINOPHILS PERCENT MAN 3 % (0-6); LYMPHOCYTES ABSOLUTE MAN 0.14 K/mm3 (0.84-5.20); LYMPHOCYTES PERCENT MAN 2 % (21-46); MONOCYTES ABSOLUTE MAN 0.14 K/mm3 (0.16-1.47); MONOCYTES PERCENT MAN 2 % (4-13); NEUTROPHILS ABSOLUTE MAN 6.71 K/mm3 (1.96-9.15); SEG NEUTROPHILS PERCENT MAN 83 % (41-73); TOTAL CELLS COUNTED 100
--- NOTE | 2020-08-30 05:47 | NUR ---
HYPOTENSION PT CONTINUES TO BE HYPOTENSIVE THIS SHIFT. NUMBERS THIS SHIFT TRENDING WHERE PAITENT BP HAS BEEN PREVIOSULY. IT HAS BEEN NOTED IN PRIOR 'S NOTES THAT PT IS HYPOTENSIVE, SO THEY ARE AWARE. PT IS ON MIDODRINE TID, PT IS ASYMPTOMATIC. DR. WARE MADE AWARE OF PT HYPOTENSION THIS SHIFT. NO NEW ORDERS GIVEN, STATES JUST TO WATCH FOR NOW.
--- NOTE | 2020-08-30 05:50 | NUR ---
OLIGURIA PT HAS NO OUTPUT THIS SHIFT. PT ABD IS SEVERELY DISTENDED WITH ASCITIES. PT TO GET PARACENTESIS TODAY. THIS MAKES GETTING AN ACCURATE BLADDER SCAN IMPOSSIBLE. PT WAS BLADDER SCANNED YESTERDAY WITH BLADDER SCAN GREATER THAN 500MLS. HOWEVER, WHEN STRAIGHT CATH ONLY 100 MLS OF URINE OBTAINED. PT HAS HAD VERY LITTLE OUTPUT THE PAST FEW SHIFTS. DR. WARE CALLED AND NOTIFED OF THIS AND PT BACKGROUND HISTORY. HE DOES NOT WANT TO BLADDER SCAN OR STRAIGHT CATH AT THIS TIME. HE STATES JUST TO WATCH FOR NOW.
--- NOTE | 2020-08-30 05:58 | NUR ---
CRTICAL LABS AND HGB DR. WARE NOTIFIED OF HGB OF 6.1, AND PLT COUNT OF 21, HCT 17.1. ORDER TO TRANSFUSE 1 UNIT OF PRBC'S.
[2020-08-30 06:02] LABS: International Normalized Ratio 1.6; Prothrombin Time Results 16.8 Sec (9.7-11.5)
--- NOTE | 2020-08-30 06:17 | NUR ---
SHIFT SUMMARY PT HAS RESTED MOST OF THE NIGHT, LETHARGIC BUT AWAKES TO VERABL STIMULI. PT REMAINS HYPOTENSIVE, PROVIDERS ARE AWARE. PAIN MEDICATION ORDERED EVEN WITH HYPOTENSION, OK TO GIVE PER PROVIDER. PT HYPOTENSIVE, BUT HAS BEEN ASYMPTOMATIC. HGB LOW, HCT AND PLT COUNT ARE LOW THIS AM, PROVIDER MADE AWARE AND PRBC'S HAVE BEEN ORDERED. PT HAS NOT VOIDED AND IS STILL HOLDING ON TO LARGES AMOUNTS OF FLUID IN HER ABD, AND PT IS GENRALLY EDEMATOUS T/O, PROVIDER ALSO AWARE. PT A/OX4, BUT FORGETFUL. ASSESSMENT UNCHANGED. BED IN LOWEST POSITION, CALL LIGHT WITHIN REACH.
--- NOTE | 2020-08-30 09:46 | NUR ---
TRANSFER NOTE THIS RN GAVE REPORT OF PT TO GRABIEL KILLIAN ON PCU. THIS RN NOTIFIED GRANDCHARLINE CONKLIN OF PT TRANSFER VIA VOICEMAIL. THIS RN NOTIFIED DAUGHTERYVETTE OF PT TRANSFER TO ROOM PCU-1 AND PT STATUS. PT ALSO GIVEN PERMISSION VIA PHYSICIAN TO VISIT PT ALONG WITH GRANDSON. PT IS LETHARGIC BUT WAKES UP TO VERBAL STIMULI AND TOUCH. BLOOD PRODUCTS ARE INFUSING. THIS RN IS TRANSFERRING PT WITH GRABIEL KAY VIA BED.
[2020-08-30 11:05] LABS: Base Excess Venous 0.2 mmol/L; Bicarbonate Venous 24.5 mmol/L (24.0-30.0); PCO2 Venous 35.3 mmHg (38-42); PO2 Venous 43.9 mmHg (38-42); pH Blood Venous 7.45 (7.34-7.37)
--- NOTE | 2020-08-30 11:35 | NUR ---
TRANSFER FROM MEDICAL FLOOR AT 0956. PT RESPONDING TO VERBAL STIMULI AND TOUCH. ABLE TO ANSWER QUESTIONS. VERY LETHARGIC AND SLEEPY. PT STATES SHE IS IN NO PAIN BUT VERY TIRED. VITAL SIGNS SHOWING SOFT BP. ON 15 L NONREBREATHER AT THIS TIME SATING 90-91%. TELE SHOWING SINUS WITH HR 70-80'S. FULL BODY EDEMA - LEGS AND ABDOMEN 4+ PITTING EDEMA. LEFT ARM 4+ EDEMA WELL. PT STATES SHE HAS LYMPHEDEMA IN LEFT ARM. RIGHT ARM 1+ EDEMA. BOWEL TONES HEARD. ABDOMEN SEVERELY DISTENDED. MEPILEX IN PLACE OVER PREVIOUS PARACENTESIS SITE, PT STATES IT WAS "LEAKING", DRESSING C/D/I. 1 UNIT OF PRBC INFUSED. POWERGLIDE TO UPPER RIGHT ARM, SECOND ONE BEING PLACED FOR ADDITIONAL MEDICATION AND ANTIBIOTICS. MACK TO BE PLACED. DR. KING AT BEDSIDE TO DISCUSS CODE STATUS AND WISHES WITH PATIENT. AT THIS TIME PATIENT REQUESTING FULL CODE AND FOR HER FAMILY TO HELP WITH DECISIONS. CALL PLACED TO GRANDSON AND DAUGHTER. WILL CALL DR. KING UPON THERE ARRIVAL. CALL LIGHT IN REACH. MONITORING CLOSELY.
[2020-08-30 13:17] LABS: Hematocrit 18.1 % (33.0-51.0); Hemoglobin 6.4 g/dL (11.5-16.0); Mean Corpuscular HGB 29.4 pg (26.0-34.0); Mean Corpuscular HGB Conc 35.4 g/dL (31.5-36.5); Mean Corpuscular Volume 83 fL (80-100); RDW Coefficient Variation 17.3 % (11.7-14.2); RDW Standard Deviation 52.5 fL (35.1-46.3); Red Blood Cell Count 2.18 M/mm3 (3.80-5.20); White Blood Cell Count 6.22 K/mm3 (4.00-11.30)
[2020-08-30 13:23] LABS: Platelet Count 16 K/mm3 (150-400)
[2020-08-30 13:35] LABS: BAND PERCENT MAN 17 % (0-8); BASOPHILS PERCENT MAN 0 % (0-2); EOSINOPHILS PERCENT MAN 0 % (0-6); LYMPHOCYTES % ATYPICAL MANUAL 3 % (0-0); LYMPHOCYTES ABSOLUTE MAN 0.43 K/mm3 (0.84-5.20); LYMPHOCYTES PERCENT MAN 4 % (21-46); MONOCYTES PERCENT MAN 0 % (4-13); NEUTROPHILS ABSOLUTE MAN 5.78 K/mm3 (1.96-9.15); SEG NEUTROPHILS PERCENT MAN 76 % (41-73); TOTAL CELLS COUNTED 100
--- NOTE | 2020-08-30 13:45 | NUR ---
DR. KING IN TO SPEAK WITH FAMILY ABOUT PATIENT STATUS AND CODE STATUS. FAMILY DISCUSSING WITH PATIENT. WILL FOLLOW UP WITH FAMILY. ANTIBIOTICS INFUSED. OTREOTIDE INFUSING. WILL CONTINUE TO MONITOR.
[2020-08-30 17:03] LABS: Source, Urine Catheter
[2020-08-30 17:10] LABS: Blood, Urine 2+ (Neg); Glucose Qualitative, Urine Neg (Neg); Ketones, Urine 1+ (Neg); Leukocyte Esterase, Urine 2+ (Neg); Nitrite, Urine Pos (Neg); Protein, Urine 2+ (Neg); Urobilinogen, Urine 2+ (Normal)
[2020-08-30 17:11] LABS: Appearance, Urine Hazy (Clear); Bilirubin, Urine 3+ (Neg)
[2020-08-30 17:12] LABS: Color, Urine Brown (P-Yellow)
[2020-08-30 17:25] LABS: Granular Casts Rare /lpf (0)
[2020-08-30 17:28] LABS: Amorphous Light (0-Heavy); Bacteria Many /hpf; Squamous Epithelial Cells Few /hpf (Few); Yeast/Fungi Urine Many /hpf
--- NOTE | 2020-08-30 17:28 | NUR ---
UPDATE: FAMILY AT BEDSIDE AND ASKING THAT PATIENT REMAIN FULL CODE UNITL THEY CAN GO HOME AND SEE IF THERE IS A ADVANCED DIRECTIVE. FAMLIY AND PATIENT IN [place]. FULL CODE MEASURES EXPLAINED IN DETAIL WITH PATIENT CONDITION. DR. KING AWARE. ORDERS FOR 1 UNIT OF BLOOD. BLOOD INFUSING. MACK PLACED, NOTICED WHITE DISCHARGE AND YEASTY LOOKING SKIN. NEW ORDERS FOR DIFLUCAN IN PLACE. CALL LIGHT IN REACH. PT DENIES NEEDS AT THIS TIME. Q2 TURNING AND NEEDED.
--- NOTE | 2020-08-30 18:42 | NUR ---
SHIFT SUMMARY: BLOOD STILL INFUSING. VITAL SIGNS STABLE AT THIS TIME. OCTREOTIDE AND PROTONIX INFUSING. TITRATED FROM NONREBREATHER AT 15L TO NASAL CANNULA 3L AT THIS TIME SATING AT 95-96%. PT REMAINS VERY LETHARGIC SLEEPING ON AND OFF. WAKES TO VERBAL STIMULI AND TOUCH. ABLE TO TAKE PILLS WITH WATER. WAS VERY HAPPY TO SEE FAMILY. DENIES PAIN. Q2 TURNING. CALL LIGHT IN REACH. WILL CONTINUE TO MONITOR AND REPORT OFF.
[2020-08-31 03:52] LABS: Hemoglobin 6.1 g/dL (11.5-16.0); Mean Corpuscular HGB 29.5 pg (26.0-34.0); Mean Corpuscular HGB Conc 35.5 g/dL (31.5-36.5); Mean Corpuscular Volume 83 fL (80-100); RDW Coefficient Variation 16.7 % (11.7-14.2); RDW Standard Deviation 50.5 fL (35.1-46.3); Red Blood Cell Count 2.07 M/mm3 (3.80-5.20); White Blood Cell Count 5.93 K/mm3 (4.00-11.30)
[2020-08-31 04:02] LABS: Hematocrit 17.2 % (33.0-51.0); Platelet Count 12 K/mm3 (150-400)
[2020-08-31 04:14] LABS: Albumin/Globulin Ratio 0.9 (0.8-1.8); Bilirubin, Total 14.5 mg/dL (0.1-1.0); Bun/Creatinine Ratio 40.4 (12.0-20.0); Creatinine, Blood 1.71 mg/dL (0.40-1.00); Globulin, Blood 2.2 g/dL (2.2-4.0); Potassium, Blood 5.8 mmol/L (3.5-5.5); Total Protein, Blood 4.2 g/dL (6.4-8.2)
[2020-08-31 05:21] LABS: BASOPHILS PERCENT MAN 0 % (0-2)
[2020-08-31 05:26] LABS: BAND PERCENT MAN 11 % (0-8); EOSINOPHILS ABSOLUTE MAN 0.11 K/mm3 (0.00-0.68); EOSINOPHILS PERCENT MAN 2 % (0-6); LYMPHOCYTES ABSOLUTE MAN 0.05 K/mm3 (0.84-5.20); LYMPHOCYTES PERCENT MAN 1 % (21-46); MONOCYTES ABSOLUTE MAN 0.11 K/mm3 (0.16-1.47); MONOCYTES PERCENT MAN 2 % (4-13); NEUTROPHILS ABSOLUTE MAN 5.63 K/mm3 (1.96-9.15); SEG NEUTROPHILS PERCENT MAN 84 % (41-73); TOTAL CELLS COUNTED 100
--- NOTE | 2020-08-31 06:17 | NUR ---
SHIFT SUMMARY PATIENT LETHARGIC AT BEGINNING OF SHIFT, RESPONDED TO PAINFUL STIMULI WITH MOANS. PATIENT NOW ALERT AND ORIENTED BUT STATES SHE FEELS TIRED. 02 SATS VARY THROUGH SHIFT PATIENT NEEDING 10L VIA HIGH FLOW NC MOST THE NIGHT 02 SATS 95%. PATIENT CURRENTLY TOLERATING 3L VIA NC 02 SATS 98%. BLOOD PRESSURE SOFT AND TRENDING DOWN. CRITICAL LABS OF HCT AND PLATELETS CALLED TO HOSPITALIST WELL Hgb OF 6.1. ORDERS TO TRANSFUSE 1 UNIT PRBCs. CURRENTLY TRANSFUSING. Q2 HOUR REPOSITIONING. NO BM. DARK BOWN URINE DRAINING FROM MACK. CALL LIGHT IN REACH.
--- NOTE | 2020-08-31 10:08 | NUR ---
AM/TRANSFER NOTE ASSUMED CARE OF PT AT APPROX 0700. PT WAKES EASILY TO VERBAL STIMUI, ORIENTED TO PERSON, PLACE, DATE/TIME AND EVENT. BP HYPOTENSIVE, PT ASYMPTOMATIC, DENIES DIZZINESS/LIGHT HEADEDNESS, NAUSEA, SOB, NO SWEARING; PT RECEIIVNG BLOOD AND MIDODRINE GIVEN AT APPROX 0728; DR KING NOTIIFED. DR KING TO ROOM THIS AM; NO NEW ORDERS, CONTINUE TO MONITOR. ATTEMPTED TO CALL GRANDSON AND DAUGHTER, SPOKW WITH YVETTE AND STATED THAT BOTH HER AND KATERIN NEEDED TO COME IN THIS AM FOR ANOTHER MEETING, UPDATED ON PT STATUS. PT ON 3L O2 VIA NC SPO2 >98%, CRACKLES NOTED TO BILATERAL BASES. PT DENIES PAIN, CHEST PAIN/PRESSURE, SOB, NAUSEA AND DIZZINESS. PT ON PROTONIX AND SANDOSTATIN GTT. K5.8, PT RECIEVING CALCIUM GLUCONATE. BP TRENDED UP WITH MIDORINE AND BLOOD, THEN TRENDING BACK DOWN; DR KING NOTIFIED. PT HAD BM AT APPROX 0930, DARK RED IN COLOR, CLOTS NOTED; NEW ORDERS TO TRANSFER TO ICU. OTHER VSS. PT LEFT ROOM TO ICU 3 AT 0955, BEDSIDE REPORT GIVEN.
[2020-08-31 10:41] LABS: Hematocrit 20.1 % (33.0-51.0); Hemoglobin 7.1 g/dL (11.5-16.0)
--- NOTE | 2020-08-31 11:40 | NUR ---
Pt has polst with full treatment from july of this year. Prognosis is poor she has been moved to ICU and requiring more blood products. family fatigued for discussion and decision making. Spoke alone with daughter. Advised her of doctor Romeo to. Also advised her that they may not accept her for treatment due to her prognosis. Daughter is tearfull and distrught she is accepting of her mother being at end of life. Her son is stuggling and her mother does not want to accept her diagnosis. Suggested she try to discuss with her keeping full treament and intubation but not cpr. Advised her that if she wants I will talk with her about her suffering not her diagnosis. She will speak iwth her today.
--- NOTE | 2020-08-31 12:00 | NUR ---
Transfer PCU 1 to ICU 3 Pt transferred via bed to ICU 3 due to hypotension and rectal bleed. A/O X 4, slow to respond. Able to state correct location, date, event. Rectal tube placed, draining liquid dark blood. Skin breakdown on coccyx, see picture in chart. Patient states wound started 3 weeks ago. NSR. Pt hypotensive and started on Levophed, see flow sheet. Dr. Amaro at bedside new orders recieved. Dr. Kruger called in regards to patient being in hospital. Palliative care, Elaine, in to see patient to discuss code status. Daughter and grandson at bedside.
[2020-08-31 13:02] LABS: Hematocrit 19.7 % (33.0-51.0); Hemoglobin 7.2 g/dL (11.5-16.0)
--- NOTE | 2020-08-31 13:06 | NUR ---
Update- Dr. Kruger returned phone call in regards to patient. Dr. Amaro at bedside and spoke to Dr. Kruger via phone. Charge nurse Francine recieved new orders. See emar and orders.
--- NOTE | 2020-08-31 18:30 | NUR ---
Shift Summary Pt remains of Levophed at 3 mcg/min, MAP > 65. Sandostatin @ 25 ml/hr and Protonix @ 10 mls/hr, via PICC to MAGDA. Pt continues to have rectal bleed, leaking around rectal tube, no output in rectal tube. 900 ml of bloody cloudy urine output. Pt remains A/O X 4. Daughter and grandson at bedside t/o day. Dr. Kruger in to see patient now and orders recieved to restart PO medication and ice chips. Provider called patients daughter to discuss code status and poor prognosis. Daughter would still like to keep patient full code but no colonoscopy per Dr. Kruger. VSS. NSR. Call light within reach. Patient currently sleeping.
--- NOTE | 2020-08-31 19:00 | NUR ---
ASSUMED CARE NOTE: ASSUMED CARE OF PT AT 1900, RECEVIED REPORT FROM JESSY SPAIN. PT IS LETHARGIC, RESPONDS TO VERBAL STIMULI, ABLE TO FOLLOW SIMPLE COMMANDS. PT IS ABLE TO STATE PLACE AND YEAR, UNABLE TO STATE EVENT OR PREVIOUS EVENTS CARRIED T/O THE DAY. PT IS VERY WEAK, UNABLE TO CARRY A CONVERSATION, UNABLE TO PERFORM BEDSIDE SWALLOW EVAL AT THIS TIME. HELD ALL PO MEDICATION DUE TO HIGH RISK OF ASPIRATION. PT IS ON 2L OF O2 VIA NC, SPO2 ABOVE 90% , WHEEZING NOTED IN BILATERAL LOWER BASES. PT IS IN SINUS TACH WITH HR BETWEEN 100-105. LEVOPHED DRIP INFUSING AT 3MCG/MIN TO MAINTAIN MAP ABOVE 65. PT IS EDEMATOUS T/O, WEEPING EDEMA NOTED TO ALLAN. ABDOMEN IS DISTENED, TENDER IN ALL QUADRANTS. PT HAD A LARGE DRAK FACUNDO LIQUID STOOL, CLOTS NOTED. RECTAL TUBE DC'd DUE TO TUBE NOT DRAINING , CLOTS NOTED IN ENTRY PORT OF RECTAL TUBE. PT HAS A SKIN TEAR NEXT TO COCCYX FOLD, PRESSURE ULCER NOTED TO AREA WELL, AREA CLEANED AND MEPILEX APPLIED. SKIN AND SCLERA IS YELLOW IN COLOR. DAY SHIFT NURSE CALLED PHYSICAN REGARDING STATUS, ORDERS FOR STAT H&H RECEVIED. WILL CONTINUE TO MONITOR PT T/O SHIFT.
--- NOTE | 2020-08-31 19:30 | NUR ---
H&H Patient with large blood around rectal tube. Rectal tube removed by Song SPAIN. Repeat H&H.
[2020-08-31 20:01] LABS: Hematocrit 16.1 % (33.0-51.0); Hemoglobin 5.7 g/dL (11.5-16.0)
--- NOTE | 2020-08-31 20:19 | NUR ---
Review of pt with GI physician and doctor domitila. Updated ICU charge nurse that [place]colgist in [place] doctor Vasquez./ Will seek support form oncology for prognaosi. Dr Kruger spoke with family regarding prognsois. Pt not wanting to stosp treatment but may not be able to follow conversation well enough to undstand needs. Will continue with support.
[2020-09-01 00:51] LABS: Hematocrit 23.1 % (33.0-51.0); Hemoglobin 8.1 g/dL (11.5-16.0)
--- NOTE | 2020-09-01 01:55 | NUR ---
UPDATE: PT RECEVIED 2 UNITS OF PRBC. LEVOPHED NEEDS DECREASED, SBP ABOVE 100, MAP MAINTAINING ABOVE 65. Hgb INCREASED TO 8.1 FROM 5.7. PT HAS NOT HAD ANY MORE BM SINCE START OF SHIFT. WILL CONTINUE TO MONITOR
[2020-09-01 05:45] LABS: BASOPHILS ABSOLUTE AUTO 0.01 K/mm3 (0.00-0.23); BASOPHILS PERCENT AUTO 0 % (0-2); Hematocrit 21.8 % (33.0-51.0); Hemoglobin 7.9 g/dL (11.5-16.0); LYMPHOCYTES ABSOLUTE AUTO 0.31 K/mm3 (0.84-5.20); LYMPHOCYTES PERCENT AUTO 3 % (21-46); MONOCYTES ABSOLUTE AUTO 0.68 K/mm3 (0.16-1.47); MONOCYTES PERCENT AUTO 7 % (4-13); Mean Corpuscular HGB Conc 36.2 g/dL (31.5-36.5); Mean Corpuscular Volume 83 fL (80-100); Mean Platelet Volume 11.2 fL (9.1-12.4); RDW Coefficient Variation 15.8 % (11.7-14.2); RDW Standard Deviation 47.7 fL (35.1-46.3); Red Blood Cell Count 2.63 M/mm3 (3.80-5.20); White Blood Cell Count 9.27 K/mm3 (4.00-11.30)
--- NOTE | 2020-09-01 06:11 | NUR ---
END SHIFT NOTE: SEE PREVIOUS NOTES. PT CONTINUES TO BE LETHARGIC, RESPONDS TO VERBAL STIMULI. PT MOANS AND YELLS OUT WITH CARE OR REPOSITIONING. PT ASKED IF SHE WAS IN PAIN SHE STATES "NO". PT CONTINUES TO BE IN SR WITH HR IN THE 90'S. LEVOPHED RUNNING AT 5MCG/MIN, ATTEMPTED TO TITRATE DRIP DOWN, UNSUCCESSFUL. PT PLACE BACK ON 2L OF 02 VIA NC DUE TO INCREASED SOB WITH ACTIVITY SpO2 ABOVE 90% , PT RECEVIED TWO UNITS OF PRBC, AWAITING AM LAB RESULTS. H&H TO BE CHECKED Q6HRS. PT HAS NOT PRODUCED ANOTHER BM SINCE THE START OF SHIFT. BOWEL TONES ACTIVE, ABD DISTENTED, AND CONTINUES TO BE TENDER. MACK PATENET DRAINING ORANGE COLORED URINE. WILL CONTINUE TO MONITOR PT UNTIL REPORT IS GIVEN TO ONCOMING SHIFT.
[2020-09-01 06:16] LABS: Albumin, Blood 2.5 g/dL (3.4-5.0); Albumin/Globulin Ratio 1.2 (0.8-1.8); Bilirubin, Total 18.1 mg/dL (0.1-1.0); Bun/Creatinine Ratio 53.8 (12.0-20.0); Calcium, Blood 8.4 mg/dL (8.5-10.1); Creatinine, Blood 1.3 mg/dL (0.40-1.00); Globulin, Blood 2.1 g/dL (2.2-4.0); Total Protein, Blood 4.6 g/dL (6.4-8.2)
[2020-09-01 06:24] LABS: EOSINOPHILS ABSOLUTE AUTO 0.05 K/mm3 (0.00-0.68); EOSINOPHILS PERCENT AUTO 1 % (0-6); IMMATURE GRAN ABSOLUTE AUTO 0.14 K/mm3 (0.00-0.10); IMMATURE GRAN PERCENT AUTO 2 % (0-1); NEUTROPHILS ABSOLUTE AUTO 8.08 K/mm3 (1.96-9.15); NEUTROPHILS PERCENT AUTO 87 % (41-73)
[2020-09-01 06:26] LABS: Platelet Count 38 K/mm3 (150-400)
[2020-09-01 09:32] LABS: Hematocrit 21.1 % (33.0-51.0); Hemoglobin 7.7 g/dL (11.5-16.0)
--- NOTE | 2020-09-01 11:39 | NUR ---
Patient awake in bed and is unable to understand resoning about she has coulter and she wants to get out of bed. We are going to go in and do bath and possiblly use lift to place in chair. PT in room working with patient. Levophed remains at 3 mcg/min and systolic 100's. She remains on 2L NC HF and diana >90%. Coulter dark orange kenneth and minimal output.
[2020-09-01 13:50] LABS: Hemoglobin 7.2 g/dL (11.5-16.0)
--- NOTE | 2020-09-01 14:00 | NUR ---
Dr Ramos in room with patient. Patient remains confused. Flushed coulter and blood clot cleared and emptied bladder. OT called and will be coming. Gave bath and cleaned larg dark maroon stool. Tried to wean O2 and put back to 2L O2 via HF NC and sats around 96%.
--- NOTE | 2020-09-01 15:16 | NUR ---
OT in room ith patient. After changing her bed and bath used ceiling lift to put in chair. Levophed at 3 mcg/min and systolics 100's. Octeotide and Protonix continue at same rate. Reapplied dresssing to coccyx after bath.
--- NOTE | 2020-09-01 18:00 | NUR ---
Dr Brewer has spoke with jay and patient is Comfort [facility] with Hospice referral. Spoke with Riky villegas and he assisted with orders. Jay was here for a little bit. We are continueing Octreotide and Protonix. Do not increase Levophed from 3 mcg/min. She is on RA and sleeping on left side.
--- NOTE | 2020-09-01 18:38 | NUR ---
Spiritual care note: I met with grandson, Mike, outside of room. He appears to be a soft-spoken and kind young man. He was tearful when speaking about pt's decline. He admits it is "hard to know what to do." Mike responded well to family counselor and affirmation. Pt was restless and confused. Pt and family non-holiness per grandson. I will remain available.
--- NOTE | 2020-09-01 19:00 | NUR ---
ASSUMED CARE NOTE: ASSUMED CARE OF PT AT 1900, REVIEWED STATUS OF PT WITH ANTHONY SPAIN. PT IS NOW IN COMFORT CARE. PLAN IS TO TITRATE LEVOPHED OFF AND TRANSFER PT TO MEDICAL FLOOR. PT CURRENTLY ON 3MCG/MIN OF LEVOPHED WILL NOT TITRATE UP PER ORDERS. PT WILL REMAIN ON PROTONIX AND SANDOSTATIN DRIP FOR COMFORT MEASURES. PT IS CONFUSED, UNABLE TO ANSWER QUESTIONS APPROPRIATLY. SHE MOANS AND YELLS OUT. SHE YELLS " I AM IN PAIN, WHAT ARE YOU DOING?" PT GIVEN IV PAIN MEDICATION, ANXIETY MEDICATION. PT REPOSITIONED. WILL CONTINUE TO MONITOR PT. FAMILY CALLED AND UPDATED. MADE FAMILY AWARE THAT THEY CAN COME AND SIT WITH HER, FAMILY DECLINED AT THIS TIME.
--- NOTE | 2020-09-02 07:17 | NUR ---
SHIFT SUMMARY: PT HAS BEEN GIVEN COMFORT MEASURES. PAIN MEDICATION GIVEN PER EMAR. PT CONTINUES TO BE ON LEVOPHED DRIP WILL READDRESS THIS MORINING. PT CONTINUES TO BE ON OCTREOTIDE, SANDOSTATIN DRIP. PT HAS BEEN REPOSITIONED TOLERATED. MACK CONTINUES TO BE IN PLACE. REPORT GIVEN TO ONCOMING SHIFT.
--- NOTE | 2020-09-02 07:30 | NUR ---
PT MOANING AND APPEARS TO HAVE AIR HUNGER-GRIMACING. PT DYSPNEIC AND TACHYPNEIC. LUNGS WITH CRACKLES THROUGH OUT. SKIN IS JAUNDICED AND PROFOUND ASCITES NOTED. ORAL MUCOSA IS VERY DRY AND MOUTH WITH OLD, DRIED BLOOD PATCHES. MAP TRENDING LESS THAN 50 WITH LEVOPHED @ 3 MCG/MIN. DR. MONTOYA UPDATED-PT MADE COMFORT CARE AND ALL DRIPS DISCONTINUED.
--- NOTE | 2020-09-02 08:20 | NUR ---
AIR HUNGER CONTINUES AND PT SITLL GRIMACING AND MOANING-DESPITE BEING MEDICATED WITH ROXANOL-DR. MONTOYA UPDATED. NEW ORDER FOR IV MORPHINE-SEE EMAR.
--- NOTE | 2020-09-02 10:00 | NUR ---
PT CONTINUES WITH LABORED BREATHING/AIR HUNGER NOTED. PT GRIMACING AND MOANING WITH EACH BREATH. MED WITH ROXANOL AND ATIVAN-SEE EMAR.
--- NOTE | 2020-09-02 10:26 | NUR ---
PT GRANDSONKATERIN CONTACTED. UPDATED THAT PT APPEARS MORE IMMINENT. PT GRANDSON DOES NOT WISH TO VISIT, BUT REQUESTS TO BE NOTIFIED WHEN PT EXPIRES.
--- NOTE | 2020-09-02 12:00 | NUR ---
PT . VINI DE LOS SANTOS FROM PASTORAL CARE AT THE BEDSIDE.
--- NOTE | 2020-09-02 13:25 | NUR ---
Comfort Care Visit earlier this AM. Pt resting in bed with her eyes closed. Pt appears comfortable with no S/S of distress at this time. Spoke with Primary RN Frances and discussed case. Frances is requesting for family to be contacted to determine which home to call. Pt appears imminent. Called and spoke with Pt's daughter. Provided update and engaged in therapeutic discussion regarding home choices. She reports she will look for the paper work the Pt complteted for home choice and will contact staff once found. Offered therapeutic listening. Palliative Care will remain available.
--- NOTE | 2020-09-02 18:05 | NUR ---
Spiritual care note: Present with pt at [facility]. No family. Karoline passed peacefully thanks to great nursing.
== END 2020-09-02 12:00 | DRG 871 ==
LOC: ER 13:55 → ICUE 19:59 → PCU 19:59 → MEDS 08-26 19:22 → PCU 08-30 09:54 → ICUE 08-31 09:52
PROVIDERS: Emergency Medicine; Family Medicine; Internal Medicine; Internal Medicine Gastroenterology; Physician Assistant; ADMIT Family Medicine
PROC: 0W9G3ZZ Drainage of Peritoneal Cavity, Percutaneous Approach (ICD-10-PCS; 2020-08-23)
PROC: 06L38CZ Occlusion of Esophageal Vein with Extraluminal Device, Via Natural or Artificial Opening Endoscopic (ICD-10-PCS; 2020-08-24)
PROC: 0W3P8ZZ Control Bleeding in Gastrointestinal Tract, Via Natural or Artificial Opening Endoscopic (ICD-10-PCS; 2020-08-24)
PROC: 0DB98ZX Excision of Duodenum, Via Natural or Artificial Opening Endoscopic, Diagnostic (ICD-10-PCS; 2020-08-24)
PROC: 30233N1 Transfusion of Nonautologous Red Blood Cells into Peripheral Vein, Percutaneous Approach (ICD-10-PCS; principal; 2020-08-29)
PROC: 02HV33Z Insertion of Infusion Device into Superior Vena Cava, Percutaneous Approach (ICD-10-PCS; 2020-08-30)
PROC: 3E043XZ Introduction of Vasopressor into Central Vein, Percutaneous Approach (ICD-10-PCS; 2020-08-31)
DX: A41.51 Sepsis due to Escherichia coli [E. coli] (principal); L89.323 Pressure ulcer of left buttock, stage 3; L89.313 Pressure ulcer of right buttock, stage 3; K31.811 Angiodysplasia of stomach and duodenum with bleeding; I85.11 Secondary esophageal varices with bleeding; I50.33 Acute on chronic diastolic (congestive) heart failure; K76.7 Hepatorenal syndrome; E43 Unspecified severe protein-calorie malnutrition; K65.2 Spontaneous bacterial peritonitis; K76.6 Portal hypertension; E87.2 Acidosis; E87.1 Hypo-osmolality and hyponatremia; D62 Acute posthemorrhagic anemia; D61.818 Other pancytopenia; R18.8 Other ascites; N17.9 Acute kidney failure, unspecified; B37.49 Other urogenital candidiasis; D68.4 Acquired coagulation factor deficiency; D63.8 Anemia in other chronic diseases classified elsewhere; Z66 Do not resuscitate; E66.01 Morbid (severe) obesity due to excess calories; Z51.5 Encounter for palliative care; E87.6 Hypokalemia; R57.8 Other shock; Z20.822 Contact with and (suspected) exposure to COVID-19; K21.9 Gastro-esophageal reflux disease without esophagitis; E86.9 Volume depletion, unspecified; K31.89 Other diseases of stomach and duodenum; K74.60 Unspecified cirrhosis of liver; K72.90 Hepatic failure, unspecified without coma; K57.10 Diverticulosis of small intestine without perforation or abscess without bleeding; F43.9 Reaction to severe stress, unspecified; K76.0 Fatty (change of) liver, not elsewhere classified; D69.59 Other secondary thrombocytopenia; M50.30 Other cervical disc degeneration, unspecified cervical region; M48.02 Spinal stenosis, cervical region; Z98.890 Other specified postprocedural states; Z95.2 Presence of prosthetic heart valve; Z98.51 Tubal ligation status; Z88.5 Allergy status to narcotic agent; Z79.899 Other long term (current) drug therapy; Z68.36 Body mass index [BMI] 36.0-36.9, adult; Z85.41 Personal history of malignant neoplasm of cervix uteri; Z90.49 Acquired absence of other specified parts of digestive tract; Z92.21 Personal history of antineoplastic chemotherapy; Z92.3 Personal history of irradiation
CPT/HCPCS: 36415; 36430; 36569; 49083; 51702; 51703; 72141; 72146; 74177; 76705; 80048; 80053; 81001; 82042; 82103; 82105; 82140; 82272; 82607; 82728; 82746; 82803; 82945; 82947; 83516; 83540; 83550; 83605; 83615; 83690; 83735; 83880; 84100; 84157; 84443; 84484; 85014; 85018; 85025; 85049; 85384; 85610; 85651; 86038; 86140; 86317; 86704; 86708; 86803; 86850; 86900; 86901; 86923; 87040; 87070; 87077; 87086; 87186; 87205; 87340; 88305; 89051; 93005; 93010; 93970; 93971; 94762; 96365-59; 96375-59; 96376-59; 97110; 97162; 97166; 97530; 97535; 99285-25; A9270; C1751; C1894; C9113; J0610; J0696; J1450; J1940; J2001; J2060; J2270; J2354; J2405; J2543; J2704; J2765; J3010; J7030; J7040; J7050; J7060; J7120; P9016; P9035; P9046; Q9967; U0004